=== PATIENT | female | born 1955 | race Caucasian/White ===

== ENCOUNTER 2017-12-01 17:18 | Emergency (ER) | payer MEDICARE, OTHER ==
[~2017-12-01] VITALS: Ht 157.5 cm; Wt 93.0 kg
--- NOTE | 2017-12-01 17:55 | PHYS DOC ---
Past Medical History Past Medical History: A-Fib, CVA, Diabetes-Type II, Hypertension Past Surgical History: Cholecystectomy, , Other Additional Past Surgical Histo: D&C,Uv[place]"the thing that hangs down in your throat, they trimmed it." Alcohol Use: None Drug Use: None Adult General Chief Complaint Chief Complaint: NEURO SYMPTOMS/DEFICITS HPI HPI Patient is a 62-year-old female presents to the emergency department for evaluation. She states that at about 2:30 or 3:00 this afternoon, she began experiencing "soreness" in her shoulders, as if it feels like she needs a massage. She denies any injury. At triage or some report of some left-sided weakness or confusion, although this does not appear to be definitively born out at this time. The patient does have a past history of strokes, however, and has a history of atrial fibrillation and has been on Eliquis for the past several months. She denies any chest pain shortness of breath, dizziness, lightheadedness, vision changes, or any focal weakness at this time. The patient states that she has a history of a hoarse voice, and she saw Dr. Rocha, and ENT in [facility], who did a scope, and then last week did a CT, because he thought the patient might of had a stroke and not known about it. The patient states that she is going to be scheduled for an MRI for further evaluation of this. She denies any abdominal pain, fevers, chills, and does not appear confused at this time. There are no alleviating, or exacerbating factors to her symptoms, except as noted above. Review of Systems Review of Systems Constitutional: Denies fever or chills [] Eyes: Denies change in visual acuity, redness, or eye pain [] HENT: Denies nasal congestion or sore throat [] Respiratory: Denies cough or shortness of breath [] Cardiovascular: The patient denies any shortness of breath, chest pain, palpitations, or orthopnea [] GI: Denies abdominal pain, nausea, vomiting, bloody stools or diarrhea [] : Denies dysuria or hematuria [] Musculoskeletal: Denies back pain or joint pain [] Integument: Denies rash or skin lesions [] Neurologic: Denies headache, focal weakness or sensory changes [] Endocrine: Denies polyuria or polydipsia [] All other systems were reviewed and found to be within normal limits, except as documented in this note. Allergies Allergies Allergies Coded Allergies Type Severity Reaction Last Updated Verified No Known Drug Allergies 12/04/13 No Physical Exam Physical Exam PHYSICAL EXAM: CONSTITUTIONAL: Well developed, well nourished HEAD: normocephalic, atraumatic EENT: PERRL, EOMI. Conjunctivae normal color, sclerae non-icteric; moist mucous membranes. NECK: Supple, non-tender; no meningismus. There is no reproducible tenderness to palpation to the neck or shoulder muscles. LUNGS: Lungs CTA, breathing even and unlabored. Normal air movement. HEART: Regular rate and rhythm, no murmur CHEST: No deformity; non-tender ABDOMEN: The abdomen is soft, and non-tender, no masses or bruits. EXTREM: Normal ROM; no deformity, no calf tenderness. Normal pulses palpable in all extremities. There is no pedal edema. SKIN: No rash; no diaphoresis NEURO: Alert; normal speech and cognition; CN's grossly intact; strength grossly intact without focal deficit. Pinprick sensation is intact and symmetrical in all extremities. Fgwopl-igca-ngbuwj and heel weaver testing are normal. NIH stroke scale score is 0. BACK: No CVA TTP. Current Patient Data Vital Signs Vital Signs Date Time Temp Pulse Resp B/P (MAP) Pulse Ox O2 Delivery O2 Flow Rate FiO2 12/01/17 17:36 98.1 70 16 101/51 (68) 97 Room Air 98.1 Lab Values Laboratory Tests Test 12/01/17 17:40 12/01/17 18:45 Glucose (Fingerstick) 234 mg/dL (70-99) H White Blood Count 8.3 x10^3/uL (4.0-11.0) Red Blood Count 4.42 x10^6/uL (3.50-5.40) Hemoglobin 13.1 g/dL (12.0-15.5) Hematocrit 39.6 % (36.0-47.0) Mean Corpuscular Volume 89 fL (79-100) Mean Corpuscular Hemoglobin 30 pg (25-35) Mean Corpuscular Hemoglobin Concent 33 g/dL (31-37) Red Cell Distribution Width 13.8 % (11.5-14.5) Platelet Count 223 x10^3/uL (140-400) Neutrophils (%) (Auto) 66 % (31-73) Lymphocytes (%) (Auto) 21 % (24-48) L Monocytes (%) (Auto) 8 % (0-9) Eosinophils (%) (Auto) 5 % (0-3) H Basophils (%) (Auto) 1 % (0-3) Neutrophils # (Auto) 5.5 x10^3uL (1.8-7.7) Lymphocytes # (Auto) 1.7 x10^3/uL (1.0-4.8) Monocytes # (Auto) 0.6 x10^3/uL (0.0-1.1) Eosinophils # (Auto) 0.4 x10^3/uL (0.0-0.7) Basophils # (Auto) 0.1 x10^3/uL (0.0-0.2) Prothrombin Time 13.0 SEC (11.7-14.0) Prothrombin Time INR 1.0 (0.8-1.1) PTT 27 SEC (24-38) Sodium Level 137 mmol/L (136-145) Potassium Level 3.6 mmol/L (3.5-5.1) Chloride Level 103 mmol/L (98-107) Carbon Dioxide Level 26 mmol/L (21-32) Anion Gap 8 (6-14) Blood Urea Nitrogen 22 mg/dL (7-20) H Creatinine 1.9 mg/dL (0.6-1.0) H Estimated GFR (Cockcroft-Gault) 26.6 BUN/Creatinine Ratio 12 (6-20) Glucose Level 285 mg/dL (70-99) H Calcium Level 8.8 mg/dL (8.5-10.1) Magnesium Level 2.4 mg/dL (1.8-2.4) Total Bilirubin 0.2 mg/dL (0.2-1.0) Aspartate Amino Transferase (AST) 121 U/L (15-37) H Alanine Aminotransferase (ALT) 92 U/L (14-59) H Alkaline Phosphatase 107 U/L (46-116) Creatine Kinase 112 U/L (26-192) Creatine Kinase MB (Mass) 1.3 ng/mL (0.0-3.6) Creatine Kinase MB Relative Index 1.2 % (0-4) Troponin I Quantitative < 0.017 ng/mL (0.000-0.055) OP-Eon-E-Type Natriuretic Peptide 260 pg/mL (0-124) H Total Protein 7.1 g/dL (6.4-8.2) Albumin 3.3 g/dL (3.4-5.0) L Albumin/Globulin Ratio 0.9 (1.0-1.7) L Free Thyroxine 1.20 ng/dL (0.76-1.46) Laboratory Tests 12/01/17 18:45 Laboratory Tests 12/01/17 18:45 EKG EKG [] Interpretation Time: EKG demonstrates a normal sinus rhythm with rate of 69. No significant ST segment abnormalities are noted on this exam. There is a first-degree AV block. Radiology/Procedures Radiology/Procedures [] Impressions: MPRESSION: Encephalomalacia in the left parietal lobe probably reflecting previous infarct. Microvascular ischemic changes in the deep white matter of the frontal lobes bilaterally. No acute intracranial abnormality evident. Soft tissue density inferiorly in the left maxillary antrum probably representing a polypoid lesion. Course & Med Decision Making Course & Med Decision Making Pertinent Labs and Imaging studies reviewed. (See chart for details) 6:00 PM: Care was turned over to Dr. Walter at shift change, pending labs, imaging, and final disposition. Report given.[] At the time of Dr. Dennis's departure, a CT of the brain without contrast and blood work were pending. Workup has returned with no acute findings on CT. Patient does have elevated creatinine but no prior blood work to compare. 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 Patient indicates that she is feeling much better at this time. She is scheduled for an MRI of the brain this week and will be following up with her primary provider as well. Patient is requesting discharge and I feel the patient is appropriate for discharge home at this time. Patient continues to have no neurological findings concerning for possible neurological event. Dragon Disclaimer Dragon Disclaimer This electronic medical record was generated, in whole or in part, using a voice recognition dictation system. Departure Departure Impression: Primary Impression: Upper back pain Disposition: 01 HOME, SELF-CARE Condition: STABLE Referrals: NON,STAFF (PCP) Patient Instructions: Back Pain, Adult Additional Instructions: Keep appointment for MRI and follow-up with primary provider for this week. Return to the emergency room if you have acute worsening of symptoms. KADEEM DENNIS MD Dec 01, 2017 17:55 OUMAR WALTER Jr., DO Dec 01, 2017 19:31
--- NOTE | 2017-12-01 18:30 | RAD ---
CT head without contrast: Reason for examination: Altered mental status with weakness. History of CVA. Comparison is made to previous study dated 05/30/2004. Axial images were obtained through the brain with no contrast administered. Exposure: One or more of the following individualized dose reduction techniques were utilized for this examination: 1. Automated exposure control 2. Adjustment of the mA and/or kV according to patient size 3. Use of iterative reconstruction technique. Ventricular systems are symmetric and not abnormally dilated. No midline shift is seen. There is no evidence of intracranial hemorrhage. There is some mild patchy deep white matter changes in the frontal lobes bilaterally. This probably reflects microvascular ischemia. There is some encephalomalacia suggested in the left parietal lobe which may reflect previous infarct. No acute infarcts, masses or edema are evident. No abnormalities are seen at the orbits. There is soft tissue density inferiorly in the left maxillary antrum which may represent polypoid lesion in the remaining paranasal sinuses visualized in the mastoid air cells appear to be clear. No acute abnormality seen in the skull. IMPRESSION: Encephalomalacia in the left parietal lobe probably reflecting previous infarct. Microvascular ischemic changes in the deep white matter of the frontal lobes bilaterally. No acute intracranial abnormality evident. Soft tissue density inferiorly in the left maxillary antrum probably representing a polypoid lesion. Electronically signed by: Karina Quintero MD (12/01/2017 6:26 PM) [facility]
[2017-12-01 18:50] LABS: BASO # 0.1 x10^3/uL (0.0-0.2); BASO % 1 % (0-3); EOS # 0.4 x10^3/uL (0.0-0.7); EOS % 5 % (0-3); HEMATOCRIT 39.6 % (36.0-47.0); HEMOGLOBIN 13.1 g/dL (12.0-15.5); LYMPH # 1.7 x10^3/uL (1.0-4.8); LYMPH % 21 % (24-48); MEAN CORPUSCULAR HEMOGLOBIN 30 pg (25-35); MEAN CORPUSCULAR HGB CONC 33 g/dL (31-37); MEAN CORPUSCULAR VOLUME 89 fL (79-100); MONO # 0.6 x10^3/uL (0.0-1.1); MONO % 8 % (0-9); NEUT # 5.5 x10^3uL (1.8-7.7); NEUT % 66 % (31-73); PLATELET COUNT 223 x10^3/uL (140-400); RED BLOOD COUNT 4.42 x10^6/uL (3.50-5.40); RED CELL DISTRIBUTION WIDTH 13.8 % (11.5-14.5); WHITE BLOOD COUNT 8.3 x10^3/uL (4.0-11.0)
[2017-12-01 19:00] VITALS: BP 122/56
[2017-12-01 19:05] LABS: CALCIUM 8.8 mg/dL (8.5-10.1); CREATININE 1.9 mg/dL (0.6-1.0); GFR 26.6; POTASSIUM 3.6 mmol/L (3.5-5.1)
[2017-12-01 19:13] LABS: ALBUMIN 3.3 g/dL (3.4-5.0); ALBUMIN/GLOBULIN RATIO 0.9 (1.0-1.7); MAGNESIUM 2.4 mg/dL (1.8-2.4); TOTAL BILIRUBIN 0.2 mg/dL (0.2-1.0); TOTAL PROTEIN 7.1 g/dL (6.4-8.2)
[2017-12-01] MEDS ORDERED: INSULIN LISPRO 300 UNITS/3 ML INSULN.PEN. SQ STA (19:51)
--- NOTE | 2017-12-02 08:12 | RAD ---
EXAM:PORTABLE CHEST 1V DATE: 12/01/2017 6:56 PM CLINICAL INDICATION: weak and short of breath COMPARISON: None. FINDINGS: The heart is top normal in size. Mediastinal and hilar contours are normal. No focal parenchymal airspace opacity. No pleural effusion or pneumothorax. IMPRESSION: No radiographic evidence for acute cardiopulmonary process. Electronically signed by: Steve Jenkins MD (12/02/2017 8:09 AM) [facility]
--- NOTE | 2017-12-02 11:56 | EKG ---
[facility] [address] [place] [address] Test Date: 2017-12-01 Test Time: 18:00:14 Pat Name: ISAC AMOR Department: Room: Gender: F Director Of Diagnostic Imaging: : 1955 Requested By: KADEEM DICKERSON Order Number: [id number] Reading MD: Tanner Moran MD Measurements Intervals [place] Rate: 68 P: 0 [place]: 222 QRS: 97 QRSD: 90 T: 54 QT: 446 QTc: 479 Interpretive Statements SINUS RHYTHM PROLONGED [place] INTERVAL NON-SPECIFIC ST/T CHANGES Electronically Signed On 12-09-2017 10:28:42 CDT by Tanner Moran MD
== END 2017-12-01 20:52 | disposition home or self-care (01) ==
LOC: ER 17:18
DX: M54.6 Pain in thoracic spine (principal); M25.512 Pain in left shoulder; R06.02 Shortness of breath; R53.1 Weakness; R41.82 Altered mental status, unspecified; G93.89 Other specified disorders of brain; I10 Essential (primary) hypertension; E11.9 Type 2 diabetes mellitus without complications; Z86.73 Personal history of transient ischemic attack (TIA), and cerebral infarction without residual deficits; I48.91 Unspecified atrial fibrillation; Z90.49 Acquired absence of other specified parts of digestive tract
CPT/HCPCS: 36415; 70450; 71045; 80053; 82553; 82962; 83735; 83880; 84439; 84484; 85025; 85610; 85730; 93005; 96372; 99285; J1815

== ENCOUNTER 2021-07-25 12:52 | Inpatient (IN) | payer MEDICARE ==
[~2021-07-25] VITALS: Ht 157.5 cm; Wt 79.6 kg
--- NOTE | 2021-07-25 13:27 | PHYS DOC ---
Past Medical History Past Medical History: A-Fib, CVA, Diabetes-Type II, Hypertension Past Surgical History: No Surgical History Additional Past Surgical Histo: D&C,Uvula"the thing that hangs down in your throat, they trimmed it." Smoking Status: Never Smoker Alcohol Use: None Drug Use: None General Adult EDM: Chief Complaint: UPPER EXTREMITY PAIN HPI: HPI: Patient is a 66 year old female with history of diabetes type 2, hypertension, A. fib, CVA, presenting to the ED today complaining of 3 out of 10 constant left shoulder pain radiating to the left humerus, symptoms have been going on for 3 weeks. Patient states she woke up 1 morning with the pain. Patient states the pain is constant worse on movement especially raising her left shoulder up. Denies any trauma. Denies anything specifically relieving her pain. Review of Systems: Review of Systems: Constitutional: Denies fever or chills. [] Eyes: Denies change in visual acuity. [] HENT: Denies nasal congestion or sore throat. [] Respiratory: Denies cough or shortness of breath. [] Cardiovascular: Denies chest pain or edema. [] GI: Denies abdominal pain, nausea, vomiting, bloody stools or diarrhea. [] : Denies dysuria. [] Musculoskeletal: Reports left shoulder pain radiating to the left humerus Integument: Denies rash. [] Neurologic: Denies headache, focal weakness or sensory changes. [] Endocrine: Denies polyuria or polydipsia. [] . [] Psychiatric: Denies depression or anxiety. [] Heart Score: C/O Chest Pain: No Risk Factors: Risk Factors: DM, Current or recent (<one month) smoker, HTN, HLP, family history of CAD, obesity. Risk Scores: Score 0 - 3: 2.5% MACE over next 6 weeks - Discharge Home Score 4 - 6: 20.3% MACE over next 6 weeks - Admit for Clinical Observation Score 7 - 10: 72.7% MACE over next 6 weeks - Early Invasive Strategies Allergies: Allergies: Allergies Coded Allergies Type Severity Reaction Last Updated Verified No Known Drug Allergies 07/25/21 No Physical Exam: PE: Constitutional: Well developed, well nourished, no acute distress, non-toxic appearance. [] HENT: Normocephalic, atraumatic, bilateral external ears normal, oropharynx moist, no oral exudates, nose normal. [] Eyes: PERRLA, EOMI, conjunctiva normal, no discharge. [] Neck: Normal range of motion, no tenderness, supple, no stridor. [] Cardiovascular:Heart rate regular rhythm, no murmur [] Lungs & Thorax: Bilateral breath sounds clear to auscultation [] Abdomen: Bowel sounds normal, soft, no tenderness, no masses, no pulsatile masses. [] Skin: Warm, dry, no erythema, no rash. [] Back: No tenderness, no CVA tenderness. [] Extremities: No tenderness, no cyanosis, no clubbing, ROM intact, no edema. [] Neurologic: Alert and oriented X 3, normal motor function, normal sensory function, no focal deficits noted. [] Psychologic: Affect normal, judgement normal, mood normal. [] Current Patient Data: Vital Signs: Vital Signs Date Time Temp Pulse Resp B/P (MAP) Pulse Ox O2 Delivery O2 Flow Rate FiO2 07/25/21 12:58 98.3 72 16 189/84 (119) 97 98.3 EKG: EK interpreted by Dr. Rowe sinus rhythm heart rate 71 no STEMI [] Radiology/Procedures: Radiology/Procedures: []PROCEDURE: SHOULDER 2+V LEFT EXAMINATION: XR SHOULDER_LEFT 2+ VIEWS. HISTORY: 66 years Female Reason: pain COMPARISON: None. FINDINGS: No fracture, dislocation or radiopaque foreign body. Mild degenerative munoz es at the AC joint with minimal inferior osteophytes suggested. IMPRESSION: No acute process. Electronically signed by: Harley Johnson MD (07/25/2021 2:22 PM) [id number] DICTATED and SIGNED BY: HARLEY JOHNSON MD DATE: 07/25/21 1420 PROCEDURE: PORTABLE CHEST 1V XR CHEST 1V INDICATION: pain . COMPARISON STUDY: 12/01/2017. FINDINGS: Lungs: Normal lung volume. No pulmonary mass or consolidation. The tracheobronchial tree and hilar structures are normal. Pleura: No pleural effusion or pneumothorax. Heart and Mediastinum: The cardiomediastinal silhouette is normal. The great vessels of the thorax are normal. IMPRESSION: No acute cardiopulmonary process. Electronically signed by: Sarah Wallace MD (07/25/2021 2:37 PM) [facility] DICTATED and SIGNED BY: SARAH WALLACE MD DATE: 07/25/21 1433 Course & Med Decision Making: Course & Med Decision Making Pertinent Labs and Imaging studies reviewed. (See chart for details) This a 66-year-old female patient presented to the ED today with left shoulder pain radiating to the left humerus, symptoms for 3 weeks, no known injury. Vitals on arrival to the ED temperature 98.3, heart rate 72, respirations 16, blood pressure 189/84, O2 sats 97% on room air. CBC no acute findings, CMP with creatinine of 1.6, BUN 26, and known history of kidney disease. Glucose 453, known history of diabetes type 2. Troponin 52. EKG is negative. Spoke with Marianela ESTEVEZ for cardiology who will follow up with the patient for chest pain rule out Spoke with Dr. Hernandez who accepted patient for admission Alexandrea Disclaimer: Alexandrea Disclaimer: This electronic medical record was generated, in whole or in part, using a voice recognition dictation system. Departure Departure Impression: Primary Impression: Hyperglycemia Additional Impressions: Elevated troponin Left upper limb pain Acute renal failure Qualified Codes: N17.9 - Acute kidney failure, unspecified Disposition: ADMITTED INPATIENT Condition: STABLE Referrals: NON,STAFF (PCP) VEL VIERA APRN Jul 25, 2021 13:27
--- NOTE | 2021-07-25 13:46 | EKG ---
[facility] [address] [place] [address] Test Date: 2021-07-25 Test Time: 13:39:48 Pat Name: ISAC AMOR Department: Room: Gender: F [employer]: : 1955 Requested By: VEL VIERA Order Number: [id number] Reading MD: Tanner Moran MD Measurements Intervals [place] Rate: 71 P: -90 [place]: 190 QRS: 54 QRSD: 102 T: 57 QT: 418 QTc: 454 Interpretive Statements SINUS RHYTHM Electronically Signed On 07-26-2021 22:07:24 CDT by Tanner Moran MD
--- NOTE | 2021-07-25 14:24 | RAD ---
EXAMINATION: XR SHOULDER_LEFT 2+ VIEWS. HISTORY: 66 years Female Reason: pain COMPARISON: None. FINDINGS: No fracture, dislocation or radiopaque foreign body. Mild degenerative changes at the AC joint wit h minimal inferior osteophytes suggested. IMPRESSION: No acute process. Electronically signed by: Jerardo Johnson MD (07/25/2021 2:22 PM) [id number]
[2021-07-25 14:35] LABS: BASO # 0.1 x10^3/uL (0.0-0.2); BASO % 1 % (0-3); EOS # 0.3 x10^3/uL (0.0-0.7); EOS % 3 % (0-3); HEMATOCRIT 43.8 % (36.0-47.0); HEMOGLOBIN 14.2 g/dL (12.0-15.5); LYMPH # 2.4 x10^3/uL (1.0-4.8); LYMPH % 26 % (24-48); MEAN CORPUSCULAR HEMOGLOBIN 29 pg (25-35); MEAN CORPUSCULAR HGB CONC 32 g/dL (31-37); MEAN CORPUSCULAR VOLUME 91 fL (79-100); MONO # 0.5 x10^3/uL (0.0-1.1); MONO % 5 % (0-9); NEUT # 6.1 x10^3/uL (1.8-7.7); NEUT % 66 % (31-73); PLATELET COUNT 226 x10^3/uL (140-400); RED BLOOD COUNT 4.84 x10^6/uL (3.50-5.40); RED CELL DISTRIBUTION WIDTH 13.7 % (11.5-14.5); WHITE BLOOD COUNT 9.3 x10^3/uL (4.0-11.0)
--- NOTE | 2021-07-25 14:39 | RAD ---
XR CHEST 1V INDICATION: pain . COMPARISON STUDY: 12/01/2017. FINDINGS: Lungs: Normal lung volume. No pulmonary mass or consolidation. The tracheobronchial tree and hilar st ructures are normal. Pleura: No pleural effusion or pneumothorax. Heart and Mediastinum: The cardiomediastinal silhouette is normal. The great vessels of the thorax ar e normal. IMPRESSION: No acute cardiopulmonary process. Electronically signed by: Husam Wallace MD (07/25/2021 2:37 PM) [facility]
[2021-07-25 14:47] LABS: CALCIUM 9.1 mg/dL (8.5-10.1); CREATININE 1.8 mg/dL (0.6-1.0); POTASSIUM 3.9 mmol/L (3.5-5.1)
[2021-07-25 14:54] LABS: ALBUMIN 3.7 g/dL (3.4-5.0); ALBUMIN/GLOBULIN RATIO 0.9 (1.0-1.7); MAGNESIUM 2.3 mg/dL (1.8-2.4); TOTAL BILIRUBIN 0.3 mg/dL (0.2-1.0); TOTAL PROTEIN 7.9 g/dL (6.4-8.2)
[2021-07-25 14:58] LABS: BACTERIA,URINE MODERATE /HPF (0-FEW); RBC,URINE 0 /HPF (0-2)
[2021-07-25] MEDS ORDERED: NITROGLYCERIN SUBLINGUAL 0.4 MG BOTTLE OF 25. SL PRN (18:00)
[2021-07-25] MEDS ORDERED: ONDANSETRON PF 4 MG/2 ML VIAL. IVP PRN (18:00)
[2021-07-25] MEDS ORDERED: IV NORMAL SALINE 1000ML BAG 1,000 ML IV ONE (18:00)
[2021-07-25] MEDS ORDERED: ASPIRIN 325 MG TABLET PO ONE (18:00)
[2021-07-25] MEDS ORDERED: IV DEXTROSE 5% 250 ML BAG. IV PRN (18:00)
[2021-07-25] MEDS ORDERED: ACETAMINOPHEN 325 MG TABLET. PO PRN (18:00)
[2021-07-25] MEDS ORDERED: MORPHINE SULFATE 4 MG/ML INJ. IVP PRN (18:00)
[2021-07-25] MEDS ORDERED: LABETALOL 20 MG/4 ML DISP.SYRIN. IVP ONE (18:00)
[2021-07-25] MEDS ORDERED: DEXTROSE 50% 25 GM / 50ML DISP.SYRIN. IV PRN (18:00)
[2021-07-25] MEDS ORDERED: hydrALAZINE 20 MG/ML VIAL. IVP PRN (19:00)
[2021-07-25] MEDS ORDERED: INSULIN LISPRO 300 UNITS/3 ML VIAL. SQ ONE (19:00)
--- NOTE | 2021-07-25 19:03 | PDOC1 ---
History and Physical Date of Service: DOS: DATE: 07/25/21 TIME: 19:02 Chief Complaint: Chief Complain: shoulder pain History of Present Illness: HPI: Patient is a 66 year old female with history of diabetes type 2, hypertension, A. fib, CVA, presenting to the ED today complaining of 3 out of 10 constant left shoulder pain radiating to the left humerus, symptoms have been going on for 3 weeks. Patient states she woke up 1 morning with the pain. Patient states the pain is constant worse on movement especially raising her left shoulder up. Denies any trauma. Denies anything specifically relieving her pain. Past Medical/Surgical History: PMH/PSH: Past Medical History: A-Fib, CVA, Diabetes-Type II, Hypertension Past Surgical History: No Surgical History Additional Past Surgical Histo: D&C,[place]"the thing that hangs down in your throat, they trimmed it." Smoking Status: Never Smoker Alcohol Use: None Drug Use: None Allergies: Allergies: Coded Allergies: No Known Drug Allergies (Unverified , 07/25/21) Family History: Family History: HTN Current Medications: Current Medications Current Medications Ondansetron HCl (Zofran) 4 mg PRN Q8HRS PRN IVP NAUSEA/VOMITING; Start 07/25/21 at 18:00; Stop 07/26/21 at 17:59 Morphine Sulfate (Morphine Sulfate) 4 mg PRN Q2HR PRN IVP PAIN; Start 07/25/21 at 18:00; Stop 07/26/21 at 17:59 Acetaminophen (Tylenol) 650 mg PRN Q4HRS PRN PO FEVER > 100.3'F; Start 07/25/21 at 18:00; Stop 07/26/21 at 17:59 Nitroglycerin (Nitrostat) 0.4 mg PRN Q5MIN PRN SL CHEST PAIN; Start 07/25/21 at 18:00; Stop 07/26/21 at 17:59 Aspirin (Loren Aspirin) 325 mg 1X ONCE PO ; Start 07/25/21 at 18:00; Stop 07/25/21 at 18:06; Status DC Labetalol HCl (Normodyne Iv Push) 10 mg 1X ONCE IVP ; Start 07/25/21 at 18:00; Stop 07/25/21 at 18:06; Status DC Sodium Chloride 1,000 ml @ 75 mls/hr 1X ONCE IV ; Start 07/25/21 at 18:00; Stop 07/26/21 at 07:19 Insulin Human Lispro (HumaLOG) 0-5 UNITS TIDWMEALS SQ ; Start 07/26/21 at 08:00 Dextrose (Dextrose 50%-Water Syringe) 12.5 gm PRN Q15MIN PRN IV SEE COMMENTS; Start 07/25/21 at 18:00; Status UNV Dextrose (Iv Dextrose 5%) 250 ml PRN Q15MIN PRN IV SEE COMMENTS; Start 07/25/21 at 18:00 Amlodipine Besylate (Norvasc) 5 mg DAILY PO ; Start 07/26/21 at 09:00 Insulin Human Lispro (HumaLOG) 15 units ONCE ONCE SQ ; Start 07/25/21 at 19:00; Stop 07/25/21 at 19:01; Status DC Hydralazine HCl (Apresoline Inj) 10 mg PRN Q4HRS PRN IVP ELEVATED BP, SEE COMMENTS; Start 07/25/21 at 19:00 Insulin Glargine (Lantus Syringe) 20 unit QHS SQ ; Start 07/25/21 at 21:00 ROS: Review of Systems Review of System Unless noted in HPI 14 point review of systems was negative Physical Exam: Vital Signs: Vital Signs Date Time Temp Pulse Resp B/P (MAP) Pulse Ox O2 Delivery O2 Flow Rate FiO2 07/25/21 18:18 68 18 173/77 (109) 97 Room Air 07/25/21 12:58 98.3 98.3 Physcial Exam: GEN: Mild distress HEENT: Normal cephalic, atraumatic, external auditory canals are patent EYES: Extraocular muscles are intact, pupil are equally round and reactive to light and accommodation MUSCULOSKELETAL: Well developed , well nourished Limited range of motion left shoulder due to pain ENDOCRINE: No thyromegaly was palpated LYMPHATICS: No cervical chain or axillary nodes were noted HEMATOPOIETIC: No bruising NECK: Supple, no JVD, no thyromegaly was noted LUNGS: Clear to auscultation in all lung tripathi without rhonchi or wheezing HEART: RRR, S!, S2 present. Peripheral pulses intact, no obvious murmurs noted ABDOMEN: Soft, nontender. Positive bowel sounds, no organomegaly, normal bowel sounds EXTREMITIES: Without clubbing, cyanosis, or edema. Pedal pulses intact. Negative Homans sign NEUROLOGIC: Normal speech and tone. A&O x 3, moves all extremities, no obvious focal deficits PSYCHIATRIC: Normal affect, normal mood. Stable SKIN: No ulcerations or rashes, good skin turgor, no jaundice VASCULAR: Good capillary refill, neurovascular bundle appears to be intact Labs: Labs: Laboratory Tests Test 07/25/21 14:00 07/25/21 14:22 07/25/21 17:00 07/25/21 18:19 White Blood Count 9.3 x10^3/uL (4.0-11.0) Red Blood Count 4.84 x10^6/uL (3.50-5.40) Hemoglobin 14.2 g/dL (12.0-15.5) Hematocrit 43.8 % (36.0-47.0) Mean Corpuscular Volume 91 fL (79-100) Mean Corpuscular Hemoglobin 29 pg (25-35) Mean Corpuscular Hemoglobin Concent 32 g/dL (31-37) Red Cell Distribution Width 13.7 % (11.5-14.5) Platelet Count 226 x10^3/uL (140-400) Neutrophils (%) (Auto) 66 % (31-73) Lymphocytes (%) (Auto) 26 % (24-48) Monocytes (%) (Auto) 5 % (0-9) Eosinophils (%) (Auto) 3 % (0-3) Basophils (%) (Auto) 1 % (0-3) Neutrophils # (Auto) 6.1 x10^3/uL (1.8-7.7) Lymphocytes # (Auto) 2.4 x10^3/uL (1.0-4.8) Monocytes # (Auto) 0.5 x10^3/uL (0.0-1.1) Eosinophils # (Auto) 0.3 x10^3/uL (0.0-0.7) Basophils # (Auto) 0.1 x10^3/uL (0.0-0.2) Sodium Level 136 mmol/L (136-145) Potassium Level 3.9 mmol/L (3.5-5.1) Chloride Level 101 mmol/L (98-107) Carbon Dioxide Level 27 mmol/L (21-32) Anion Gap 8 (6-14) Blood Urea Nitrogen 26 mg/dL (7-20) Creatinine 1.8 mg/dL (0.6-1.0) Estimated GFR (Cockcroft-Gault) 28.0 BUN/Creatinine Ratio 14 (6-20) Glucose Level 453 mg/dL (70-99) Calcium Level 9.1 mg/dL (8.5-10.1) Magnesium Level 2.3 mg/dL (1.8-2.4) Total Bilirubin 0.3 mg/dL (0.2-1.0) Aspartate Amino Transf (AST/SGOT) 10 U/L (15-37) Alanine Aminotransferase (ALT/SGPT) 16 U/L (14-59) Alkaline Phosphatase 98 U/L (46-116) Troponin I High Sensitivity 52 ng/L (4-50) 49 ng/L (4-50) HS-Llb-F-Type Natriuretic Peptide 231 pg/mL (0-124) Total Protein 7.9 g/dL (6.4-8.2) Albumin 3.7 g/dL (3.4-5.0) Albumin/Globulin Ratio 0.9 (1.0-1.7) Thyroid Stimulating Hormone (TSH) 1.858 uIU/mL (0.358-3.74) Urine Collection Type Unknown Urine Color (Auto) Light yellow Urine Turbidity Hazy Urine pH (Auto) 6.5 (<5.0-8.0) Urine Specific [place] 1.023 (1.000-1.030) Urine Protein (Auto) 50 mg/dL (Negative) Urine Glucose (Auto)(UA) >=1000 mg/dL (Negative) Urine Ketones (Auto) Negative mg/dL (Negative) Urine Blood (Auto) Negative (Negative) Urine Nitrite Negative (Negative) Urine Bilirubin (Auto) Negative (Negative) Urine Urobilinogen (Auto) Normal mg/dL (Normal) Urine Leukocyte Esterase (Auto) Negative (Negative) Urine RBC 0 /HPF (0-2) Urine WBC 5-10 /HPF (0-4) Urine Squamous Epithelial Cells Occ /LPF Urine Bacteria Moderate /HPF (0-FEW) SARS-CoV-2 Antigen (Rapid) Negative (NEGATIVE) Laboratory Tests Test 07/25/21 14:00 07/25/21 14:22 07/25/21 17:00 07/25/21 18:19 White Blood Count 9.3 x10^3/uL (4.0-11.0) Red Blood Count 4.84 x10^6/uL (3.50-5.40) Hemoglobin 14.2 g/dL (12.0-15.5) Hematocrit 43.8 % (36.0-47.0) Mean Corpuscular Volume 91 fL (79-100) Mean Corpuscular Hemoglobin 29 pg (25-35) Mean Corpuscular Hemoglobin Concent 32 g/dL (31-37) Red Cell Distribution Width 13.7 % (11.5-14.5) Platelet Count 226 x10^3/uL (140-400) Neutrophils (%) (Auto) 66 % (31-73) Lymphocytes (%) (Auto) 26 % (24-48) Monocytes (%) (Auto) 5 % (0-9) Eosinophils (%) (Auto) 3 % (0-3) Basophils (%) (Auto) 1 % (0-3) Neutrophils # (Auto) 6.1 x10^3/uL (1.8-7.7) Lymphocytes # (Auto) 2.4 x10^3/uL (1.0-4.8) Monocytes # (Auto) 0.5 x10^3/uL (0.0-1.1) Eosinophils # (Auto) 0.3 x10^3/uL (0.0-0.7) Basophils # (Auto) 0.1 x10^3/uL (0.0-0.2) Sodium Level 136 mmol/L (136-145) Potassium Level 3.9 mmol/L (3.5-5.1) Chloride Level 101 mmol/L (98-107) Carbon Dioxide Level 27 mmol/L (21-32) Anion Gap 8 (6-14) Blood Urea Nitrogen 26 mg/dL (7-20) Creatinine 1.8 mg/dL (0.6-1.0) Estimated GFR (Cockcroft-Gault) 28.0 BUN/Creatinine Ratio 14 (6-20) Glucose Level 453 mg/dL (70-99) Calcium Level 9.1 mg/dL (8.5-10.1) Magnesium Level 2.3 mg/dL (1.8-2.4) Total Bilirubin 0.3 mg/dL (0.2-1.0) Aspartate Amino Transf (AST/SGOT) 10 U/L (15-37) Alanine Aminotransferase (ALT/SGPT) 16 U/L (14-59) Alkaline Phosphatase 98 U/L (46-116) Troponin I High Sensitivity 52 ng/L (4-50) 49 ng/L (4-50) US-Qll-S-Type Natriuretic Peptide 231 pg/mL (0-124) Total Protein 7.9 g/dL (6.4-8.2) Albumin 3.7 g/dL (3.4-5.0) Albumin/Globulin Ratio 0.9 (1.0-1.7) Thyroid Stimulating Hormone (TSH) 1.858 uIU/mL (0.358-3.74) Urine Collection Type Unknown Urine Color (Auto) Light yellow Urine Turbidity Hazy Urine pH (Auto) 6.5 (<5.0-8.0) Urine Specific [place] 1.023 (1.000-1.030) Urine Protein (Auto) 50 mg/dL (Negative) Urine Glucose (Auto)(UA) >=1000 mg/dL (Negative) Urine Ketones (Auto) Negative mg/dL (Negative) Urine Blood (Auto) Negative (Negative) Urine Nitrite Negative (Negative) Urine Bilirubin (Auto) Negative (Negative) Urine Urobilinogen (Auto) Normal mg/dL (Normal) Urine Leukocyte Esterase (Auto) Negative (Negative) Urine RBC 0 /HPF (0-2) Urine WBC 5-10 /HPF (0-4) Urine Squamous Epithelial Cells Occ /LPF Urine Bacteria Moderate /HPF (0-FEW) SARS-CoV-2 Antigen (Rapid) Negative (NEGATIVE) Assessment/Plan Assessment/Plan Left shoulder pain nontraumatic, troponinemia, elevated lipid panel history of A. fib on Eliquis, CVA type 2 diabetes hypertension -Presented complaining of left shoulder pain. Imaging unremarkable. Found to have elevated troponin -PMR consulted for shoulder pain -Can try a PT OT as well if needed -Cardiology consulted in emergency room -Home Eliquis resumed will also serve as DVT prophylaxis -We will gather patient's chart given elevated lipid panel; if not on any home medicines we will try him on 40 of Lipitor tonight -Cardiac diet 21 minutes advance care planning. Justifications for Admission Other Justification MOY FERGUSON MD Jul 25, 2021 19:02
[2021-07-25 19:58] LABS: CHOLESTEROL/HDL RATIO 4.1
[2021-07-25 20:12] LABS: PROTHROMBIN TIME PATIENT 12.5 SEC (11.7-14.0)
[2021-07-25] MEDS ORDERED: APIX5TAB PO (20:21)
[2021-07-25 20:27] VITALS: BP 202/78
[2021-07-25] MEDS: INSULIN GLARGINE SYRINGE. SQ SCH (20:44)
--- NOTE | 2021-07-25 20:59 | NUR ---
Admit to [facility] from ER via [facility]. Ambulated from [facility] to bed with standby assist. Reports she only uses a cane or walker at home if she is going long distances. A/O x 4 on arrival. Orientated to call light. Instructed to call for assist when out of bed. Verbalized understanding. Reviewed POC. Unable to report home medications. Does know she is taking Eliquis for blood thinner r/t hx of CVA. Spoke to daughter, Mariela, , and Mariela is at work and unable to obtain patient's medication list but will attempt to get list in the morning. Patient is resting in bed. Eating box lunch. Watching TV. Call light at hand. Bed alarm on.
[2021-07-25 22:54] VITALS: BP 138/60
[2021-07-26] MEDS ORDERED: DEXTROSE 50% 25 GM / 50ML DISP.SYRIN. IV PRN (00:30)
[2021-07-26] MEDS ORDERED: IV DEXTROSE 5% 250 ML BAG. IV PRN (00:30)
[2021-07-26 02:44] VITALS: BP 151/70
[2021-07-26 04:59] LABS: BASO # 0.1 x10^3/uL (0.0-0.2); BASO % 1 % (0-3); EOS # 0.3 x10^3/uL (0.0-0.7); EOS % 3 % (0-3); HEMATOCRIT 40.7 % (36.0-47.0); LYMPH # 2.2 x10^3/uL (1.0-4.8); LYMPH % 29 % (24-48); MEAN CORPUSCULAR HEMOGLOBIN 29 pg (25-35); MEAN CORPUSCULAR HGB CONC 32 g/dL (31-37); MEAN CORPUSCULAR VOLUME 90 fL (79-100); MONO # 0.5 x10^3/uL (0.0-1.1); MONO % 7 % (0-9); NEUT # 4.5 x10^3/uL (1.8-7.7); NEUT % 60 % (31-73); PLATELET COUNT 222 x10^3/uL (140-400); RED BLOOD COUNT 4.52 x10^6/uL (3.50-5.40); RED CELL DISTRIBUTION WIDTH 13.4 % (11.5-14.5); WHITE BLOOD COUNT 7.6 x10^3/uL (4.0-11.0)
[2021-07-26] MEDS ORDERED: HEPARIN for SUB-Q USE 5,000 UNIT/ML VIAL. SQ SCH (06:00)
[2021-07-26 06:15] LABS: ALBUMIN/GLOBULIN RATIO 0.9 (1.0-1.7); CALCIUM 8.5 mg/dL (8.5-10.1); CREATININE 1.5 mg/dL (0.6-1.0); GFR 34.5; POTASSIUM 3.3 mmol/L (3.5-5.1); TOTAL BILIRUBIN 0.3 mg/dL (0.2-1.0); TOTAL PROTEIN 6.5 g/dL (6.4-8.2)
[2021-07-26 07:00] VITALS: BP 158/73
[2021-07-26] MEDS ORDERED: INSULIN LISPRO 300 UNITS/3 ML VIAL. SQ SCH (08:00)
[2021-07-26] MEDS: INSULIN LISPRO 300 UNITS/3 ML VIAL. SQ SCH ×6 (08:16→17:21)
[2021-07-26] MEDS: APIXABAN 5 MG TABLET. PO SCH ×2 (09:07→20:48)
--- NOTE | 2021-07-26 09:47 | PDOC2 ---
CONSULT Date of Consult Date of Consult DATE: 07/26/21 TIME: 09:08 Reason for Consult Reason for Consult: shoulder pain Referring Physician Referring Physician: Identification/Chief Complaint Chief Complaint Shoulder pain,left, for the last few weeks without any trauma. History of Present Illness Reason for Visit: Left shoulder joint pain going on for the last few weeks without any trauma. She denies any neck pain but admits numbness in her hands and feet. She admits pain going down to anterior aspect of her left arm. Past Medical History Past Medical History diabetes,atrial fibrillation,hypertension,CVA with left hemiparesis about 4 months ago,and she has to learn to walk and that improved. She had a few falls and lives in an assisted living facility and have a cane and walker for use if needed. Cardiovascular: AFIB, HTN CENTRAL NERVOUS SYSTEM: CVA, Periperal neuropathy Musculoskeletal: Other (popping sensation in her knees while up walking.) Social History Lives: Alone (in skilled nursing facility in [place], [place]) Current Problem List Problem List Problems Medical Problems: (1) Acute renal failure Status: Acute (2) Elevated troponin Status: Acute (3) Hyperglycemia Status: Acute (4) Left upper limb pain Status: Acute Current Medications Current Medications Current Medications Ondansetron HCl (Zofran) 4 mg PRN Q8HRS PRN IVP NAUSEA/VOMITING; Start 07/25/21 at 18:00; Stop 07/26/21 at 17:59 Morphine Sulfate (Morphine Sulfate) 4 mg PRN Q2HR PRN IVP PAIN; Start 07/25/21 at 18:00; Stop 07/26/21 at 17:59 Acetaminophen (Tylenol) 650 mg PRN Q4HRS PRN PO FEVER > 100.3'F; Start 07/25/21 at 18:00; Stop 07/26/21 at 17:59 Nitroglycerin (Nitrostat) 0.4 mg PRN Q5MIN PRN SL CHEST PAIN; Start 07/25/21 at 18:00; Stop 07/26/21 at 17:59 Aspirin (Loren Aspirin) 325 mg 1X ONCE PO Last administered on 07/25/21at 20:43; Start 07/25/21 at 18:00; Stop 07/25/21 at 18:06; Status DC Labetalol HCl (Normodyne Iv Push) 10 mg 1X ONCE IVP ; Start 07/25/21 at 18:00; Stop 07/25/21 at 18:06; Status DC Sodium Chloride 1,000 ml @ 75 mls/hr 1X ONCE IV Last administered on 07/25/21at 20:42; Start 07/25/21 at 18:00; Stop 07/26/21 at 07:19; Status DC Insulin Human Lispro (HumaLOG) 0-5 UNITS TIDWMEALS SQ ; Start 07/26/21 at 08:00; Stop 07/26/21 at 00:24; Status DC Dextrose (Dextrose 50%-Water Syringe) 12.5 gm PRN Q15MIN PRN IV SEE COMMENTS; Start 07/25/21 at 18:00; Status UNV Dextrose (Iv Dextrose 5%) 250 ml PRN Q15MIN PRN IV SEE COMMENTS; Start 07/25/21 at 18:00; Stop 07/26/21 at 00:25; Status DC Amlodipine Besylate (Norvasc) 5 mg DAILY PO ; Start 07/26/21 at 09:00 Insulin Human Lispro (HumaLOG) 15 units ONCE ONCE SQ Last administered on 07/25/21at 20:43; Start 07/25/21 at 19:00; Stop 07/25/21 at 19:01; Status DC Hydralazine HCl (Apresoline Inj) 10 mg PRN Q4HRS PRN IVP ELEVATED BP, SEE COMMENTS; Start 07/25/21 at 19:00 Insulin Glargine (Lantus Syringe) 20 unit QHS SQ Last administered on 07/25/21at 20:44; Start 07/25/21 at 21:00 Insulin Human Lispro (HumaLOG) 10 units TIDAC SQ Last administered on 07/26/21at 08:16; Start 07/26/21 at 07:30 Heparin Sodium (Porcine) (Heparin Sodium) 5,000 unit Q8HRS SQ ; Start 07/26/21 at 06:00; Stop 07/26/21 at 00:19; Status DC Apixaban (Eliquis) 5 mg BID PO ; Start 07/26/21 at 09:00 Insulin Human Lispro (HumaLOG) 0-7 UNITS TIDWMEALS SQ Last administered on 07/26/21at 08:16; Start 07/26/21 at 08:00 Dextrose (Dextrose 50%-Water Syringe) 12.5 gm PRN Q15MIN PRN IV SEE COMMENTS; Start 07/26/21 at 00:30 Dextrose (Iv Dextrose 5%) 250 ml PRN Q15MIN PRN IV SEE COMMENTS; Start 07/26/21 at 00:30 Active Scripts Active Reported Eliquis (Apixaban) 5 Mg Tablet 5 Mg PO BID Allergies Allergies: Coded Allergies: No Known Drug Allergies (Unverified , 07/25/21) Physical Exam General: Alert, Oriented X3, Cooperative, No acute distress HEENT: Atraumatic Extremities: Other (She had minimal tenderness to palpation over anteriro aspect of left shoulder and over posteriro shoulder girdle muscles and pain free full ROM of her shoulder joints and cervical spine and no crepitus on ROM of her shoulders and mild crepitus on ROM of her knee joints.) Skin: No breakdown Neuro: Normal gait, Normal speech, Strength at 5/5 X4 ext, Normal tone, Cranial nerves 3-12 NL, Other (No obvious visual field cut or facial asymmetry,and she had decreased sensory perception over a sock and glove distribution and she had absent right ankle and 1+ left ankle jerk.) MUSCULOSKELETAL: Other (She had tenderness to palpation over anterior aspect of left shoulder and left posterior shoulder girdle muscles.) Vitals VITALS Vital Signs Date Time Temp Pulse Resp B/P (MAP) Pulse Ox O2 Delivery O2 Flow Rate FiO2 07/26/21 08:00 Room Air 07/26/21 07:00 97.5 68 18 158/73 (101) 96 97.5 Labs Labs Laboratory Tests Test 07/25/21 14:00 07/25/21 14:22 07/25/21 17:00 07/25/21 18:19 White Blood Count 9.3 x10^3/uL (4.0-11.0) Red Blood Count 4.84 x10^6/uL (3.50-5.40) Hemoglobin 14.2 g/dL (12.0-15.5) Hematocrit 43.8 % (36.0-47.0) Mean Corpuscular Volume 91 fL (79-100) Mean Corpuscular Hemoglobin 29 pg (25-35) Mean Corpuscular Hemoglobin Concent 32 g/dL (31-37) Red Cell Distribution Width 13.7 % (11.5-14.5) Platelet Count 226 x10^3/uL (140-400) Neutrophils (%) (Auto) 66 % (31-73) Lymphocytes (%) (Auto) 26 % (24-48) Monocytes (%) (Auto) 5 % (0-9) Eosinophils (%) (Auto) 3 % (0-3) Basophils (%) (Auto) 1 % (0-3) Neutrophils # (Auto) 6.1 x10^3/uL (1.8-7.7) Lymphocytes # (Auto) 2.4 x10^3/uL (1.0-4.8) Monocytes # (Auto) 0.5 x10^3/uL (0.0-1.1) Eosinophils # (Auto) 0.3 x10^3/uL (0.0-0.7) Basophils # (Auto) 0.1 x10^3/uL (0.0-0.2) Sodium Level 136 mmol/L (136-145) Potassium Level 3.9 mmol/L (3.5-5.1) Chloride Level 101 mmol/L (98-107) Carbon Dioxide Level 27 mmol/L (21-32) Anion Gap 8 (6-14) Blood Urea Nitrogen 26 mg/dL (7-20) Creatinine 1.8 mg/dL (0.6-1.0) Estimated GFR (Cockcroft-Gault) 28.0 BUN/Creatinine Ratio 14 (6-20) Glucose Level 453 mg/dL (70-99) Calcium Level 9.1 mg/dL (8.5-10.1) Magnesium Level 2.3 mg/dL (1.8-2.4) Total Bilirubin 0.3 mg/dL (0.2-1.0) Aspartate Amino Transf (AST/SGOT) 10 U/L (15-37) Alanine Aminotransferase (ALT/SGPT) 16 U/L (14-59) Alkaline Phosphatase 98 U/L (46-116) Troponin I High Sensitivity 52 ng/L (4-50) 49 ng/L (4-50) DH-Ina-Q-Type Natriuretic Peptide 231 pg/mL (0-124) Total Protein 7.9 g/dL (6.4-8.2) Albumin 3.7 g/dL (3.4-5.0) Albumin/Globulin Ratio 0.9 (1.0-1.7) Triglycerides Level 261 mg/dL (0-150) Cholesterol Level 238 mg/dL (0-200) LDL Cholesterol, Calculated 128 mg/dL (0-100) VLDL Cholesterol, Calculated 52 mg/dL (0-40) Non-HDL Cholesterol Calculated 180 mg/dL (0-129) HDL Cholesterol 58 mg/dL (40-60) Cholesterol/HDL Ratio 4.1 Thyroid Stimulating Hormone (TSH) 1.858 uIU/mL (0.358-3.74) Urine Collection Type Unknown Urine Color (Auto) Light yellow Urine Turbidity Hazy Urine pH (Auto) 6.5 (<5.0-8.0) Urine Specific [place] 1.023 (1.000-1.030) Urine Protein (Auto) 50 mg/dL (Negative) Urine Glucose (Auto)(UA) >=1000 mg/dL (Negative) Urine Ketones (Auto) Negative mg/dL (Negative) Urine Blood (Auto) Negative (Negative) Urine Nitrite Negative (Negative) Urine Bilirubin (Auto) Negative (Negative) Urine Urobilinogen (Auto) Normal mg/dL (Normal) Urine Leukocyte Esterase (Auto) Negative (Negative) Urine RBC 0 /HPF (0-2) Urine WBC 5-10 /HPF (0-4) Urine Squamous Epithelial Cells Occ /LPF Urine Bacteria Moderate /HPF (0-FEW) SARS-CoV-2 Antigen (Rapid) Negative (NEGATIVE) Test 07/25/21 19:22 07/25/21 19:30 07/25/21 20:20 07/26/21 03:25 Glucose (Fingerstick) 223 mg/dL (70-99) Prothrombin Time 12.5 SEC (11.7-14.0) Prothromb Time International Ratio 1.0 (0.8-1.1) Activated Partial Thromboplast Time 25 SEC (24-38) Troponin I High Sensitivity 50 ng/L (4-50) White Blood Count 7.6 x10^3/uL (4.0-11.0) Red Blood Count 4.52 x10^6/uL (3.50-5.40) Hemoglobin 13.0 g/dL (12.0-15.5) Hematocrit 40.7 % (36.0-47.0) Mean Corpuscular Volume 90 fL (79-100) Mean Corpuscular Hemoglobin 29 pg (25-35) Mean Corpuscular Hemoglobin Concent 32 g/dL (31-37) Red Cell Distribution Width 13.4 % (11.5-14.5) Platelet Count 222 x10^3/uL (140-400) Neutrophils (%) (Auto) 60 % (31-73) Lymphocytes (%) (Auto) 29 % (24-48) Monocytes (%) (Auto) 7 % (0-9) Eosinophils (%) (Auto) 3 % (0-3) Basophils (%) (Auto) 1 % (0-3) Neutrophils # (Auto) 4.5 x10^3/uL (1.8-7.7) Lymphocytes # (Auto) 2.2 x10^3/uL (1.0-4.8) Monocytes # (Auto) 0.5 x10^3/uL (0.0-1.1) Eosinophils # (Auto) 0.3 x10^3/uL (0.0-0.7) Basophils # (Auto) 0.1 x10^3/uL (0.0-0.2) Sodium Level 142 mmol/L (136-145) Potassium Level 3.3 mmol/L (3.5-5.1) Chloride Level 106 mmol/L (98-107) Carbon Dioxide Level 27 mmol/L (21-32) Anion Gap 9 (6-14) Blood Urea Nitrogen 25 mg/dL (7-20) Creatinine 1.5 mg/dL (0.6-1.0) Estimated GFR (Cockcroft-Gault) 34.5 BUN/Creatinine Ratio 17 (6-20) Glucose Level 204 mg/dL (70-99) Calcium Level 8.5 mg/dL (8.5-10.1) Total Bilirubin 0.3 mg/dL (0.2-1.0) Aspartate Amino Transf (AST/SGOT) 12 U/L (15-37) Alanine Aminotransferase (ALT/SGPT) 17 U/L (14-59) Alkaline Phosphatase 75 U/L (46-116) Total Protein 6.5 g/dL (6.4-8.2) Albumin 3.0 g/dL (3.4-5.0) Albumin/Globulin Ratio 0.9 (1.0-1.7) Test 07/26/21 07:51 Glucose (Fingerstick) 184 mg/dL (70-99) Laboratory Tests Test 07/25/21 14:00 07/25/21 14:22 07/25/21 17:00 07/25/21 18:19 White Blood Count 9.3 x10^3/uL (4.0-11.0) Red Blood Count 4.84 x10^6/uL (3.50-5.40) Hemoglobin 14.2 g/dL (12.0-15.5) Hematocrit 43.8 % (36.0-47.0) Mean Corpuscular Volume 91 fL (79-100) Mean Corpuscular Hemoglobin 29 pg (25-35) Mean Corpuscular Hemoglobin Concent 32 g/dL (31-37) Red Cell Distribution Width 13.7 % (11.5-14.5) Platelet Count 226 x10^3/uL (140-400) Neutrophils (%) (Auto) 66 % (31-73) Lymphocytes (%) (Auto) 26 % (24-48) Monocytes (%) (Auto) 5 % (0-9) Eosinophils (%) (Auto) 3 % (0-3) Basophils (%) (Auto) 1 % (0-3) Neutrophils # (Auto) 6.1 x10^3/uL (1.8-7.7) Lymphocytes # (Auto) 2.4 x10^3/uL (1.0-4.8) Monocytes # (Auto) 0.5 x10^3/uL (0.0-1.1) Eosinophils # (Auto) 0.3 x10^3/uL (0.0-0.7) Basophils # (Auto) 0.1 x10^3/uL (0.0-0.2) Sodium Level 136 mmol/L (136-145) Potassium Level 3.9 mmol/L (3.5-5.1) Chloride Level 101 mmol/L (98-107) Carbon Dioxide Level 27 mmol/L (21-32) Anion Gap 8 (6-14) Blood Urea Nitrogen 26 mg/dL (7-20) Creatinine 1.8 mg/dL (0.6-1.0) Estimated GFR (Cockcroft-Gault) 28.0 BUN/Creatinine Ratio 14 (6-20) Glucose Level 453 mg/dL (70-99) Calcium Level 9.1 mg/dL (8.5-10.1) Magnesium Level 2.3 mg/dL (1.8-2.4) Total Bilirubin 0.3 mg/dL (0.2-1.0) Aspartate Amino Transf (AST/SGOT) 10 U/L (15-37) Alanine Aminotransferase (ALT/SGPT) 16 U/L (14-59) Alkaline Phosphatase 98 U/L (46-116) Troponin I High Sensitivity 52 ng/L (4-50) 49 ng/L (4-50) IK-Hao-R-Type Natriuretic Peptide 231 pg/mL (0-124) Total Protein 7.9 g/dL (6.4-8.2) Albumin 3.7 g/dL (3.4-5.0) Albumin/Globulin Ratio 0.9 (1.0-1.7) Triglycerides Level 261 mg/dL (0-150) Cholesterol Level 238 mg/dL (0-200) LDL Cholesterol, Calculated 128 mg/dL (0-100) VLDL Cholesterol, Calculated 52 mg/dL (0-40) Non-HDL Cholesterol Calculated 180 mg/dL (0-129) HDL Cholesterol 58 mg/dL (40-60) Cholesterol/HDL Ratio 4.1 Thyroid Stimulating Hormone (TSH) 1.858 uIU/mL (0.358-3.74) Urine Collection Type Unknown Urine Color (Auto) Light yellow Urine Turbidity Hazy Urine pH (Auto) 6.5 (<5.0-8.0) Urine Specific [place] 1.023 (1.000-1.030) Urine Protein (Auto) 50 mg/dL (Negative) Urine Glucose (Auto)(UA) >=1000 mg/dL (Negative) Urine Ketones (Auto) Negative mg/dL (Negative) Urine Blood (Auto) Negative (Negative) Urine Nitrite Negative (Negative) Urine Bilirubin (Auto) Negative (Negative) Urine Urobilinogen (Auto) Normal mg/dL (Normal) Urine Leukocyte Esterase (Auto) Negative (Negative) Urine RBC 0 /HPF (0-2) Urine WBC 5-10 /HPF (0-4) Urine Squamous Epithelial Cells Occ /LPF Urine Bacteria Moderate /HPF (0-FEW) SARS-CoV-2 Antigen (Rapid) Negative (NEGATIVE) Test 07/25/21 19:22 07/25/21 19:30 07/25/21 20:20 07/26/21 03:25 Glucose (Fingerstick) 223 mg/dL (70-99) Prothrombin Time 12.5 SEC (11.7-14.0) Prothromb Time International Ratio 1.0 (0.8-1.1) Activated Partial Thromboplast Time 25 SEC (24-38) Troponin I High Sensitivity 50 ng/L (4-50) White Blood Count 7.6 x10^3/uL (4.0-11.0) Red Blood Count 4.52 x10^6/uL (3.50-5.40) Hemoglobin 13.0 g/dL (12.0-15.5) Hematocrit 40.7 % (36.0-47.0) Mean Corpuscular Volume 90 fL (79-100) Mean Corpuscular Hemoglobin 29 pg (25-35) Mean Corpuscular Hemoglobin Concent 32 g/dL (31-37) Red Cell Distribution Width 13.4 % (11.5-14.5) Platelet Count 222 x10^3/uL (140-400) Neutrophils (%) (Auto) 60 % (31-73) Lymphocytes (%) (Auto) 29 % (24-48) Monocytes (%) (Auto) 7 % (0-9) Eosinophils (%) (Auto) 3 % (0-3) Basophils (%) (Auto) 1 % (0-3) Neutrophils # (Auto) 4.5 x10^3/uL (1.8-7.7) Lymphocytes # (Auto) 2.2 x10^3/uL (1.0-4.8) Monocytes # (Auto) 0.5 x10^3/uL (0.0-1.1) Eosinophils # (Auto) 0.3 x10^3/uL (0.0-0.7) Basophils # (Auto) 0.1 x10^3/uL (0.0-0.2) Sodium Level 142 mmol/L (136-145) Potassium Level 3.3 mmol/L (3.5-5.1) Chloride Level 106 mmol/L (98-107) Carbon Dioxide Level 27 mmol/L (21-32) Anion Gap 9 (6-14) Blood Urea Nitrogen 25 mg/dL (7-20) Creatinine 1.5 mg/dL (0.6-1.0) Estimated GFR (Cockcroft-Gault) 34.5 BUN/Creatinine Ratio 17 (6-20) Glucose Level 204 mg/dL (70-99) Calcium Level 8.5 mg/dL (8.5-10.1) Total Bilirubin 0.3 mg/dL (0.2-1.0) Aspartate Amino Transf (AST/SGOT) 12 U/L (15-37) Alanine Aminotransferase (ALT/SGPT) 17 U/L (14-59) Alkaline Phosphatase 75 U/L (46-116) Total Protein 6.5 g/dL (6.4-8.2) Albumin 3.0 g/dL (3.4-5.0) Albumin/Globulin Ratio 0.9 (1.0-1.7) Test 07/26/21 07:51 Glucose (Fingerstick) 184 mg/dL (70-99) Images Images X-ray left shoulder mild DJD of AC joint. 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 Diabetic peripheral neuropathy. Rec: I have instructed her in a home program of physical modalities to left shoulder,followed by stretching exercises to posterior shoulder girdle muscles and in Codman's exercises to her left shoulder and to try a short course of oral prednisone and home when medically stable. PREM BRISENO MD Jul 26, 2021 09:47
[2021-07-26 10:59] VITALS: BP 142/60
--- NOTE | 2021-07-26 12:09 | PDOC2 ---
JANETTE COMBS MEDICAL SOCIOLOGIST 07/26/21 1209: CARDIAC CONSULT DATE OF CONSULT Date of Consult DATE: 07/26/21 TIME: 12:03 REASON FOR CONSULT Reason for Consult: LUE pain REFERRING PHYSICIAN Referring Physician: Ermelinda SOURCE Source: Chart review, Patient HISTORY OF PRESENT ILLNESS HISTORY OF PRESENT ILLNESS This is a pleasant 66 yo female admitted for complains of left shoulder. She was told by her family to get this check out since this could be ralted to heart attack. No associated chest pain, SOA, fatigue, nausea, vomiting. No recent falls or injury. No fever or chills. Could not remember lifting heavy things or moving furniture but her left arm hurst with sometimes shooting with motion. Positive for pain with palpation and ROM to left arm and shoulder. She sees her tobacco classer in [facility] in 3 weeks and also sees a mend worker. She lives over there and just here to visit her family. Her last stress test was 4 yrs ago. PAST MEDICAL HISTORY Cardiovascular: AFIB, HTN, Hyperlipidemia Pulmonary: No pertinent hx CENTRAL NERVOUS SYSTEM: CVA GI: No pertinent hx Heme/Onc: No pertinent hx Psych: No pertinent hx Musculoskeletal: Osteoarthritis Rheumatologic: No pertinent hx Infectious disease: No pertinent hx ENT: No pertinent hx Renal/: Chronic renal insuff Endocrine: Diabetes (2) Dermatology: No pertinent hx PAST SURGICAL HISTORY Past Surgical History: Hysterectomy FAMILY HISTORY Family History: Coronary Artery Disease (father at 42) SOCIAL HISTORY Smoke: No ALCOHOL: none Drugs: None Lives: with Family CURRENT MEDICATIONS CURRENT MEDICATIONS Current Medications Medications (Trade) Dose Ordered Sig/[place] Route PRN Reason Start Time Stop Time Status Last Admin Dose Admin Aspirin (Loren Aspirin) 325 mg 1X ONCE PO 07/25/21 18:00 07/25/21 18:06 DC 07/25/21 20:43 Sodium Chloride 1,000 ml @ 75 mls/hr 1X ONCE IV 07/25/21 18:00 07/26/21 07:19 DC 07/25/21 20:42 Amlodipine Besylate (Norvasc) 5 mg DAILY PO 07/26/21 09:00 07/26/21 09:07 Insulin Human Lispro (HumaLOG) 15 units ONCE ONCE SQ 07/25/21 19:00 07/25/21 19:01 DC 07/25/21 20:43 Insulin Glargine (Lantus Syringe) 20 unit QHS SQ 07/25/21 21:00 07/25/21 20:44 Insulin Human Lispro (HumaLOG) 10 units TIDAC SQ 07/26/21 07:30 07/26/21 12:00 Apixaban (Eliquis) 5 mg BID PO 07/26/21 09:00 07/26/21 09:07 Insulin Human Lispro (HumaLOG) 0-7 UNITS TIDWMEALS SQ 07/26/21 08:00 07/26/21 08:16 ALLERGIES ALLERGIES: Coded Allergies: No Known Drug Allergies (Unverified , 07/25/21) ROS Review of System 14 point ROS evaluated with pertinent positives noted per HPI PHYSICAL EXAM General: Alert, Oriented X3, Cooperative, No acute distress HEENT: Atraumatic, Mucous membr. moist/pink Lungs: Clear to auscultation, Normal air movement Heart: Regular rate (SR), Normal S1, Normal S2, Other (2/6 systolic murmur to LLS border) Abdomen: Soft, No tenderness Extremities: No cyanosis, No edema Skin: No breakdown, No significant lesion Neuro: Normal speech, Sensation intact Psych/Mental Status: Mental status NL, Mood NL MUSCULOSKELETAL: Osteoarthritic changes both hands, Other (Positive pain to left shoulder with palpation and ROM) VITALS/I&O VITALS/I&O: Vital Signs Date Time Temp Pulse Resp B/P (MAP) Pulse Ox O2 Delivery O2 Flow Rate FiO2 07/26/21 10:59 97.5 70 18 142/60 (87) 99 Room Air 97.5 l I & O 07/25/21 07/25/21 07/26/21 15:00 23:00 07:00 Intake Total 200 ml Output Total 100 ml 700 ml Balance -100 ml -500 ml LABS Lab: Laboratory Tests Test 07/25/21 14:00 07/25/21 14:22 07/25/21 17:00 07/25/21 18:19 White Blood Count 9.3 x10^3/uL (4.0-11.0) Red Blood Count 4.84 x10^6/uL (3.50-5.40) Hemoglobin 14.2 g/dL (12.0-15.5) Hematocrit 43.8 % (36.0-47.0) Mean Corpuscular Volume 91 fL (79-100) Mean Corpuscular Hemoglobin 29 pg (25-35) Mean Corpuscular Hemoglobin Concent 32 g/dL (31-37) Red Cell Distribution Width 13.7 % (11.5-14.5) Platelet Count 226 x10^3/uL (140-400) Neutrophils (%) (Auto) 66 % (31-73) Lymphocytes (%) (Auto) 26 % (24-48) Monocytes (%) (Auto) 5 % (0-9) Eosinophils (%) (Auto) 3 % (0-3) Basophils (%) (Auto) 1 % (0-3) Neutrophils # (Auto) 6.1 x10^3/uL (1.8-7.7) Lymphocytes # (Auto) 2.4 x10^3/uL (1.0-4.8) Monocytes # (Auto) 0.5 x10^3/uL (0.0-1.1) Eosinophils # (Auto) 0.3 x10^3/uL (0.0-0.7) Basophils # (Auto) 0.1 x10^3/uL (0.0-0.2) Sodium Level 136 mmol/L (136-145) Potassium Level 3.9 mmol/L (3.5-5.1) Chloride Level 101 mmol/L (98-107) Carbon Dioxide Level 27 mmol/L (21-32) Anion Gap 8 (6-14) Blood Urea Nitrogen 26 mg/dL (7-20) H Creatinine 1.8 mg/dL (0.6-1.0) H Estimated GFR (Cockcroft-Gault) 28.0 BUN/Creatinine Ratio 14 (6-20) Glucose Level 453 mg/dL (70-99) H Calcium Level 9.1 mg/dL (8.5-10.1) Magnesium Level 2.3 mg/dL (1.8-2.4) Total Bilirubin 0.3 mg/dL (0.2-1.0) Aspartate Amino Transferase (AST) 10 U/L (15-37) L Alanine Aminotransferase (ALT) 16 U/L (14-59) Alkaline Phosphatase 98 U/L (46-116) Troponin I High Sensitivity 52 ng/L (4-50) H 49 ng/L (4-50) YF-Pwp-R-Type Natriuretic Peptide 231 pg/mL (0-124) H Total Protein 7.9 g/dL (6.4-8.2) Albumin 3.7 g/dL (3.4-5.0) Albumin/Globulin Ratio 0.9 (1.0-1.7) L Triglycerides Level 261 mg/dL (0-150) H Cholesterol Level 238 mg/dL (0-200) H LDL Cholesterol, Calculated 128 mg/dL (0-100) H VLDL Cholesterol, Calculated 52 mg/dL (0-40) H Non-HDL Cholesterol Calculated 180 mg/dL (0-129) H HDL Cholesterol 58 mg/dL (40-60) Cholesterol/HDL Ratio 4.1 Thyroid Stimulating Hormone (TSH) 1.858 uIU/mL (0.358-3.74) Urine Collection Type Unknown Urine Color (Auto) Light yellow Urine Turbidity Hazy Urine pH (Auto) 6.5 (<5.0-8.0) Urine Specific [place] 1.023 (1.000-1.030) Urine Protein (Auto) 50 mg/dL (Negative) Urine Glucose (Auto)(UA) >=1000 mg/dL (Negative) Urine Ketones (Auto) Negative mg/dL (Negative) Urine Blood (Auto) Negative (Negative) Urine Nitrite Negative (Negative) Urine Bilirubin (Auto) Negative (Negative) Urine Urobilinogen (Auto) Normal mg/dL (Normal) Urine Leukocyte Esterase (Auto) Negative (Negative) Urine RBC 0 /HPF (0-2) Urine WBC 5-10 /HPF (0-4) Urine Squamous Epithelial Cells Occ /LPF Urine Bacteria Moderate /HPF (0-FEW) SARS-CoV-2 Antigen (Rapid) Negative (NEGATIVE) Test 07/25/21 19:22 07/25/21 19:30 07/25/21 20:20 07/26/21 03:25 Glucose (Fingerstick) 223 mg/dL (70-99) H Prothrombin Time 12.5 SEC (11.7-14.0) Prothrombin Time INR 1.0 (0.8-1.1) Activated Partial Thromboplast Time 25 SEC (24-38) Troponin I High Sensitivity 50 ng/L (4-50) White Blood Count 7.6 x10^3/uL (4.0-11.0) Red Blood Count 4.52 x10^6/uL (3.50-5.40) Hemoglobin 13.0 g/dL (12.0-15.5) Hematocrit 40.7 % (36.0-47.0) Mean Corpuscular Volume 90 fL (79-100) Mean Corpuscular Hemoglobin 29 pg (25-35) Mean Corpuscular Hemoglobin Concent 32 g/dL (31-37) Red Cell Distribution Width 13.4 % (11.5-14.5) Platelet Count 222 x10^3/uL (140-400) Neutrophils (%) (Auto) 60 % (31-73) Lymphocytes (%) (Auto) 29 % (24-48) Monocytes (%) (Auto) 7 % (0-9) Eosinophils (%) (Auto) 3 % (0-3) Basophils (%) (Auto) 1 % (0-3) Neutrophils # (Auto) 4.5 x10^3/uL (1.8-7.7) Lymphocytes # (Auto) 2.2 x10^3/uL (1.0-4.8) Monocytes # (Auto) 0.5 x10^3/uL (0.0-1.1) Eosinophils # (Auto) 0.3 x10^3/uL (0.0-0.7) Basophils # (Auto) 0.1 x10^3/uL (0.0-0.2) Sodium Level 142 mmol/L (136-145) Potassium Level 3.3 mmol/L (3.5-5.1) L Chloride Level 106 mmol/L (98-107) Carbon Dioxide Level 27 mmol/L (21-32) Anion Gap 9 (6-14) Blood Urea Nitrogen 25 mg/dL (7-20) H Creatinine 1.5 mg/dL (0.6-1.0) H Estimated GFR (Cockcroft-Gault) 34.5 BUN/Creatinine Ratio 17 (6-20) Glucose Level 204 mg/dL (70-99) H Calcium Level 8.5 mg/dL (8.5-10.1) Total Bilirubin 0.3 mg/dL (0.2-1.0) Aspartate Amino Transferase (AST) 12 U/L (15-37) L Alanine Aminotransferase (ALT) 17 U/L (14-59) Alkaline Phosphatase 75 U/L (46-116) Total Protein 6.5 g/dL (6.4-8.2) Albumin 3.0 g/dL (3.4-5.0) L Albumin/Globulin Ratio 0.9 (1.0-1.7) L Test 07/26/21 07:51 07/26/21 11:27 Glucose (Fingerstick) 184 mg/dL (70-99) H 135 mg/dL (70-99) H Laboratory Tests 07/25/21 14:00 07/26/21 03:25 Laboratory Tests 07/25/21 14:00 07/26/21 03:25 ASSESSMENT/PLAN ASSESSMENT/PLAN 1. Left shoulder/arm: Suspect tendinitis possible RTC impingement. Positive with ROM maneuvers 2. Hx of CVA; 4 months ago 3. PAFIB: SR 4. HTN: controlled 5. CKD: possibly stage 3 6. HLP 7. DM2: per PCP 8. Trivial elevation to troponin: peaked at 52, no acute EKG changes no cardiac symptoms Recommendations 1. Continue with eliquis for stroke prevention. Secondary prevention measures 2. RN to clarify med list 3. She sees a mend worker and tobacco classer at [place], [place] where she is from, visiting family here. discussed with pt to get an echo and outpt stress test arrange prior to her appointment with cardiology in 3 weeks DOLORES PORRAS MD 07/26/215: CARDIAC CONSULT ASSESSMENT/PLAN ASSESSMENT/PLAN Pt. seen and examined. Agree with above [employer] note. Patient has multiple risk factors but current presentation appears to be MSK and non-anginal. Trivial troponin elevation in the setting of HTN with pain. Given risk factors, she merits outpt stress testing. Supportive care. EKG is reassuring. JANETTE COMBS APRN Jul 26, 2021 12:09 DOLORES PORRAS MD Jul 26, 2021 22:09
[2021-07-26] MEDS ORDERED: FURO20TA3 PO (13:12)
[2021-07-26] MEDS ORDERED: INSU100I13 SQ (13:12)
[2021-07-26] MEDS ORDERED: DULO30CA44 PO (13:12)
[2021-07-26] MEDS ORDERED: CAPT25TA3 PO (13:12)
[2021-07-26] MEDS ORDERED: APIX5TAB PO (13:12)
[2021-07-26] MEDS ORDERED: MONT10TA49 PO (13:12)
[2021-07-26] MEDS ORDERED: AMIO200T53 PO (13:12)
[2021-07-26] MEDS ORDERED: POTA-121 PO (13:12)
[2021-07-26] MEDS ORDERED: TOLT4CAP PO (13:12)
[2021-07-26] MEDS ORDERED: POTASSIUM CHLORIDE 20 MEQ TABLET.ER. PO ONE (13:30)
[2021-07-26] MEDS: AMIODARONE HCL 200 MG TABLET. PO SCH (13:40)
[2021-07-26] MEDS: FUROSEMIDE 20 MG TABLET PO SCH (13:41)
--- NOTE | 2021-07-26 14:55 | NUR ---
SS following for discharge planning. SS reviewed pt chart and discussed with pt RN. Pt is from home and is currently on room air. Cardiology and Dr. Abdi following. COVID19 negative. PT/OT recommended home with home healthcare. SS will continue to follow for discharge planning.
[2021-07-26 15:00] VITALS: BP 146/70
--- NOTE | 2021-07-26 16:32 | PDOC3 ---
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 Diabetic peripheral neuropathy. CKD 3 obese, BMI 32 Dm2 hyperlipids, untreated Problems Medical Problems: (1) Acute renal failure Status: Acute (2) Elevated troponin Status: Acute (3) Hyperglycemia Status: Acute (4) Left upper limb pain Status: Acute Brief Hospital Course Allergies Allergies Coded Allergies Type Severity Reaction Last Updated Verified No Known Drug Allergies 07/25/21 No Vital Signs Vital Signs Date Time Temp Pulse Resp B/P (MAP) Pulse Ox O2 Delivery O2 Flow Rate FiO2 07/26/21 15:00 97.6 76 18 146/70 (95) 97 Room Air 97.6 Lab Results Laboratory Tests Test 07/25/21 14:00 07/25/21 14:22 07/25/21 17:00 07/25/21 18:19 White Blood Count 9.3 x10^3/uL (4.0-11.0) Red Blood Count 4.84 x10^6/uL (3.50-5.40) Hemoglobin 14.2 g/dL (12.0-15.5) Hematocrit 43.8 % (36.0-47.0) Mean Corpuscular Volume 91 fL (79-100) Mean Corpuscular Hemoglobin 29 pg (25-35) Mean Corpuscular Hemoglobin Concent 32 g/dL (31-37) Red Cell Distribution Width 13.7 % (11.5-14.5) Platelet Count 226 x10^3/uL (140-400) Neutrophils (%) (Auto) 66 % (31-73) Lymphocytes (%) (Auto) 26 % (24-48) Monocytes (%) (Auto) 5 % (0-9) Eosinophils (%) (Auto) 3 % (0-3) Basophils (%) (Auto) 1 % (0-3) Neutrophils # (Auto) 6.1 x10^3/uL (1.8-7.7) Lymphocytes # (Auto) 2.4 x10^3/uL (1.0-4.8) Monocytes # (Auto) 0.5 x10^3/uL (0.0-1.1) Eosinophils # (Auto) 0.3 x10^3/uL (0.0-0.7) Basophils # (Auto) 0.1 x10^3/uL (0.0-0.2) Sodium Level 136 mmol/L (136-145) Potassium Level 3.9 mmol/L (3.5-5.1) Chloride Level 101 mmol/L (98-107) Carbon Dioxide Level 27 mmol/L (21-32) Anion Gap 8 (6-14) Blood Urea Nitrogen 26 mg/dL (7-20) Creatinine 1.8 mg/dL (0.6-1.0) Estimated GFR (Cockcroft-Gault) 28.0 BUN/Creatinine Ratio 14 (6-20) Glucose Level 453 mg/dL (70-99) Calcium Level 9.1 mg/dL (8.5-10.1) Magnesium Level 2.3 mg/dL (1.8-2.4) Total Bilirubin 0.3 mg/dL (0.2-1.0) Aspartate Amino Transf (AST/SGOT) 10 U/L (15-37) Alanine Aminotransferase (ALT/SGPT) 16 U/L (14-59) Alkaline Phosphatase 98 U/L (46-116) Troponin I High Sensitivity 52 ng/L (4-50) 49 ng/L (4-50) QN-Hlk-V-Type Natriuretic Peptide 231 pg/mL (0-124) Total Protein 7.9 g/dL (6.4-8.2) Albumin 3.7 g/dL (3.4-5.0) Albumin/Globulin Ratio 0.9 (1.0-1.7) Triglycerides Level 261 mg/dL (0-150) Cholesterol Level 238 mg/dL (0-200) LDL Cholesterol, Calculated 128 mg/dL (0-100) VLDL Cholesterol, Calculated 52 mg/dL (0-40) Non-HDL Cholesterol Calculated 180 mg/dL (0-129) HDL Cholesterol 58 mg/dL (40-60) Cholesterol/HDL Ratio 4.1 Thyroid Stimulating Hormone (TSH) 1.858 uIU/mL (0.358-3.74) Urine Collection Type Unknown Urine Color (Auto) Light yellow Urine Turbidity Hazy Urine pH (Auto) 6.5 (<5.0-8.0) Urine Specific [place] 1.023 (1.000-1.030) Urine Protein (Auto) 50 mg/dL (Negative) Urine Glucose (Auto)(UA) >=1000 mg/dL (Negative) Urine Ketones (Auto) Negative mg/dL (Negative) Urine Blood (Auto) Negative (Negative) Urine Nitrite Negative (Negative) Urine Bilirubin (Auto) Negative (Negative) Urine Urobilinogen (Auto) Normal mg/dL (Normal) Urine Leukocyte Esterase (Auto) Negative (Negative) Urine RBC 0 /HPF (0-2) Urine WBC 5-10 /HPF (0-4) Urine Squamous Epithelial Cells Occ /LPF Urine Bacteria Moderate /HPF (0-FEW) Coronavirus (COVID-19)(PCR) Not detected (NOT DETECTD) SARS-CoV-2 Antigen (Rapid) Negative (NEGATIVE) Test 07/25/21 19:22 07/25/21 19:30 07/25/21 20:20 07/26/21 03:25 Glucose (Fingerstick) 223 mg/dL (70-99) Prothrombin Time 12.5 SEC (11.7-14.0) Prothromb Time International Ratio 1.0 (0.8-1.1) Activated Partial Thromboplast Time 25 SEC (24-38) Troponin I High Sensitivity 50 ng/L (4-50) White Blood Count 7.6 x10^3/uL (4.0-11.0) Red Blood Count 4.52 x10^6/uL (3.50-5.40) Hemoglobin 13.0 g/dL (12.0-15.5) Hematocrit 40.7 % (36.0-47.0) Mean Corpuscular Volume 90 fL (79-100) Mean Corpuscular Hemoglobin 29 pg (25-35) Mean Corpuscular Hemoglobin Concent 32 g/dL (31-37) Red Cell Distribution Width 13.4 % (11.5-14.5) Platelet Count 222 x10^3/uL (140-400) Neutrophils (%) (Auto) 60 % (31-73) Lymphocytes (%) (Auto) 29 % (24-48) Monocytes (%) (Auto) 7 % (0-9) Eosinophils (%) (Auto) 3 % (0-3) Basophils (%) (Auto) 1 % (0-3) Neutrophils # (Auto) 4.5 x10^3/uL (1.8-7.7) Lymphocytes # (Auto) 2.2 x10^3/uL (1.0-4.8) Monocytes # (Auto) 0.5 x10^3/uL (0.0-1.1) Eosinophils # (Auto) 0.3 x10^3/uL (0.0-0.7) Basophils # (Auto) 0.1 x10^3/uL (0.0-0.2) Sodium Level 142 mmol/L (136-145) Potassium Level 3.3 mmol/L (3.5-5.1) Chloride Level 106 mmol/L (98-107) Carbon Dioxide Level 27 mmol/L (21-32) Anion Gap 9 (6-14) Blood Urea Nitrogen 25 mg/dL (7-20) Creatinine 1.5 mg/dL (0.6-1.0) Estimated GFR (Cockcroft-Gault) 34.5 BUN/Creatinine Ratio 17 (6-20) Glucose Level 204 mg/dL (70-99) Calcium Level 8.5 mg/dL (8.5-10.1) Total Bilirubin 0.3 mg/dL (0.2-1.0) Aspartate Amino Transf (AST/SGOT) 12 U/L (15-37) Alanine Aminotransferase (ALT/SGPT) 17 U/L (14-59) Alkaline Phosphatase 75 U/L (46-116) Total Protein 6.5 g/dL (6.4-8.2) Albumin 3.0 g/dL (3.4-5.0) Albumin/Globulin Ratio 0.9 (1.0-1.7) Test 07/26/21 07:51 07/26/21 11:27 Glucose (Fingerstick) 184 mg/dL (70-99) 135 mg/dL (70-99) Laboratory Tests Test 07/25/21 17:00 07/25/21 18:19 07/25/21 19:22 07/25/21 19:30 Troponin I High Sensitivity 49 ng/L (4-50) Coronavirus (COVID-19)(PCR) Not detected (NOT DETECTD) SARS-CoV-2 Antigen (Rapid) Negative (NEGATIVE) Glucose (Fingerstick) 223 mg/dL (70-99) Prothrombin Time 12.5 SEC (11.7-14.0) Prothromb Time International Ratio 1.0 (0.8-1.1) Activated Partial Thromboplast Time 25 SEC (24-38) Test 07/25/21 20:20 07/26/21 03:25 07/26/21 07:51 07/26/21 11:27 Troponin I High Sensitivity 50 ng/L (4-50) White Blood Count 7.6 x10^3/uL (4.0-11.0) Red Blood Count 4.52 x10^6/uL (3.50-5.40) Hemoglobin 13.0 g/dL (12.0-15.5) Hematocrit 40.7 % (36.0-47.0) Mean Corpuscular Volume 90 fL (79-100) Mean Corpuscular Hemoglobin 29 pg (25-35) Mean Corpuscular Hemoglobin Concent 32 g/dL (31-37) Red Cell Distribution Width 13.4 % (11.5-14.5) Platelet Count 222 x10^3/uL (140-400) Neutrophils (%) (Auto) 60 % (31-73) Lymphocytes (%) (Auto) 29 % (24-48) Monocytes (%) (Auto) 7 % (0-9) Eosinophils (%) (Auto) 3 % (0-3) Basophils (%) (Auto) 1 % (0-3) Neutrophils # (Auto) 4.5 x10^3/uL (1.8-7.7) Lymphocytes # (Auto) 2.2 x10^3/uL (1.0-4.8) Monocytes # (Auto) 0.5 x10^3/uL (0.0-1.1) Eosinophils # (Auto) 0.3 x10^3/uL (0.0-0.7) Basophils # (Auto) 0.1 x10^3/uL (0.0-0.2) Sodium Level 142 mmol/L (136-145) Potassium Level 3.3 mmol/L (3.5-5.1) Chloride Level 106 mmol/L (98-107) Carbon Dioxide Level 27 mmol/L (21-32) Anion Gap 9 (6-14) Blood Urea Nitrogen 25 mg/dL (7-20) Creatinine 1.5 mg/dL (0.6-1.0) Estimated GFR (Cockcroft-Gault) 34.5 BUN/Creatinine Ratio 17 (6-20) Glucose Level 204 mg/dL (70-99) Calcium Level 8.5 mg/dL (8.5-10.1) Total Bilirubin 0.3 mg/dL (0.2-1.0) Aspartate Amino Transf (AST/SGOT) 12 U/L (15-37) Alanine Aminotransferase (ALT/SGPT) 17 U/L (14-59) Alkaline Phosphatase 75 U/L (46-116) Total Protein 6.5 g/dL (6.4-8.2) Albumin 3.0 g/dL (3.4-5.0) Albumin/Globulin Ratio 0.9 (1.0-1.7) Glucose (Fingerstick) 184 mg/dL (70-99) 135 mg/dL (70-99) Brief Hospital Course Ms. 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 in [place], [place] Physiatry consulted, shoulder injury, follow there as well, consider ortho plan Discharge Information Condition at Discharge: Improved Follow Up: Weeks Disposition/Orders: D/C to Home Scheduled Amiodarone Hcl (Amiodarone Hcl) 200 Mg Tablet, 1 TAB PO DAILY for afib, #90 Ref 1 (Reported) Entered as Reported by: CALVIN TOLBERT on 07/26/211311 Last Action: New Order on 07/26/211311 by CALVIN TOLBERT Apixaban (Eliquis) 5 Mg Tablet, 5 MG PO BID for cva, (Reported) Entered as Reported by: REBEKA ROBERTS on 07/25/212020 Last Action: Continued on 07/26/2117 by MOY FERGUSON MD Captopril (Captopril) 25 Mg Tablet, 25 MG PO BID for HTN, (Reported) Entered as Reported by: CALVIN TOLBERT on 07/26/211311 Last Action: New Order on 07/26/211311 by CALVIN TOLBERT Duloxetine Hcl (Duloxetine Hcl) 30 Mg Capsule.dr, 30 MG PO DAILY for anxiety, (Reported) Entered as Reported by: CALVIN TOLBERT on 07/26/211311 Last Action: New Order on 07/26/211311 by CALVIN TOLBERT Furosemide (Furosemide) 20 Mg Tablet, 20 MG PO DAILY for afib, (Reported) Entered as Reported by: CALVIN TOLBERT on 07/26/211311 Last Action: New Order on 07/26/211311 by CALVIN TOLBERT Insulin Glargine,Hum.rec.anlog (Lantus Solostar) 100 Unit/1 Ml Insuln.pen, 65 UNIT SQ QHS for DM, #15 Ref 3 (Reported) Entered as Reported by: CALVIN TOLBERT on 07/26/211311 Last Action: New Order on 07/26/211311 by CALVIN TOLBERT Montelukast Sodium (Montelukast Sodium Tablet ) 10 Mg Tablet, 30 MG PO HS for FOR ASTHMA, Ref 0 (Reported) Entered as Reported by: CALVIN TOLBERT on 07/26/211311 Last Action: New Order on 07/26/211311 by CALVIN TOLBERT Potassium Chloride (Klor-Con M20) 20 Meq Tab.er.prt, 20 MEQ PO DAILY for taking lasix, (Reported) Entered as Reported by: CALVIN TOLBERT on 07/26/211311 Last Action: New Order on 07/26/211311 by CALVIN TOLBERT Tolterodine Tartrate (Detrol La) 4 Mg Cap.er.24h, 1 CAP PO DAILY for incontinence, #90 Ref 1 (Reported) Entered as Reported by: CALVIN TOLBERT on 07/26/211311 Last Action: New Order on 07/26/211311 by CALVIN TOLBERT Discontinued Medications Apixaban (Eliquis) 5 Mg Tablet, 5 MG PO DAILY for afib, (Reported) Entered as Reported by: CALVIN TOLBERT on 07/26/211311 Last Action: New Order on 07/26/211311 by CALVIN TOLBERT Patient Instructions Patient Instructions pt seen face to face Justicifation of Admission Dx: Justifications for Admission: Justification of Admission Dx: No (obs) AVEL SAM MD Jul 26, 2021 16:32
[2021-07-26 19:22] VITALS: BP 170/57
[2021-07-26] MEDS: INSULIN GLARGINE SYRINGE. SQ SCH (20:50)
[2021-07-26] MEDS ORDERED: ATORVASTATIN CALCIUM 20 MG TABLET PO SCH (21:00)
[2021-07-26 22:52] VITALS: BP 164/64
[2021-07-27 03:00] VITALS: BP 183/78
[2021-07-27 04:59] LABS: HEMOGLOBIN A1C 7.7 % (4.8-5.6)
[2021-07-27 07:00] VITALS: BP 162/62
[2021-07-27] MEDS: INSULIN LISPRO 300 UNITS/3 ML VIAL. SQ SCH ×2 (08:16→08:17)
[2021-07-27] MEDS: APIXABAN 5 MG TABLET. PO SCH (08:26)
[2021-07-27] MEDS: FUROSEMIDE 20 MG TABLET PO SCH (08:26)
[2021-07-27] MEDS: AMIODARONE HCL 200 MG TABLET. PO SCH (08:26)
[2021-07-27 08:27] VITALS: BP 162/62
--- NOTE | 2021-07-27 09:18 | PDOC ---
PROGRESS NOTES Date of Service DATE: 07/27/21 TIME: 09:15 Subjective Subjective She admits continued left shoulder pain to some extent and eager to go home. Objective Objective Vital Signs Date Time Temp Pulse Resp B/P (MAP) Pulse Ox O2 Delivery O2 Flow Rate FiO2 07/27/21 08:27 70 162/62 07/27/21 08:00 Room Air 07/27/21 07:00 97.7 18 95 97.7 Intake and Output 07/27/21 07:00 Intake Total 940 ml Balance 940 ml Intake Oral 940 ml # Voids 3 Physical Exam Physical Exam She is alert,sitting in bed side chair and seems to be comfortable and she continues with tenderness to palpation over left shoulder and left posterior shoulder girdle muscles. Assessment Assessment Problems Medical Problems: (1) Acute renal failure Status: Acute (2) Elevated troponin Status: Acute (3) Hyperglycemia Status: Acute (4) Left upper limb pain Status: Acute Plan Plan of Group Home with home health physical therapy follow up when medically stable. Comment Review of Relevant I have reviewed the following items karen (where applicable) has been applied. Labs Laboratory Tests Test 07/25/21 14:00 07/25/21 14:22 07/25/21 17:00 07/25/21 18:19 White Blood Count 9.3 x10^3/uL (4.0-11.0) Red Blood Count 4.84 x10^6/uL (3.50-5.40) Hemoglobin 14.2 g/dL (12.0-15.5) Hematocrit 43.8 % (36.0-47.0) Mean Corpuscular Volume 91 fL (79-100) Mean Corpuscular Hemoglobin 29 pg (25-35) Mean Corpuscular Hemoglobin Concent 32 g/dL (31-37) Red Cell Distribution Width 13.7 % (11.5-14.5) Platelet Count 226 x10^3/uL (140-400) Neutrophils (%) (Auto) 66 % (31-73) Lymphocytes (%) (Auto) 26 % (24-48) Monocytes (%) (Auto) 5 % (0-9) Eosinophils (%) (Auto) 3 % (0-3) Basophils (%) (Auto) 1 % (0-3) Neutrophils # (Auto) 6.1 x10^3/uL (1.8-7.7) Lymphocytes # (Auto) 2.4 x10^3/uL (1.0-4.8) Monocytes # (Auto) 0.5 x10^3/uL (0.0-1.1) Eosinophils # (Auto) 0.3 x10^3/uL (0.0-0.7) Basophils # (Auto) 0.1 x10^3/uL (0.0-0.2) Sodium Level 136 mmol/L (136-145) Potassium Level 3.9 mmol/L (3.5-5.1) Chloride Level 101 mmol/L (98-107) Carbon Dioxide Level 27 mmol/L (21-32) Anion Gap 8 (6-14) Blood Urea Nitrogen 26 mg/dL (7-20) Creatinine 1.8 mg/dL (0.6-1.0) Estimated GFR (Cockcroft-Gault) 28.0 BUN/Creatinine Ratio 14 (6-20) Glucose Level 453 mg/dL (70-99) Hemoglobin A1c 7.7 % (4.8-5.6) Calcium Level 9.1 mg/dL (8.5-10.1) Magnesium Level 2.3 mg/dL (1.8-2.4) Total Bilirubin 0.3 mg/dL (0.2-1.0) Aspartate Amino Transf (AST/SGOT) 10 U/L (15-37) Alanine Aminotransferase (ALT/SGPT) 16 U/L (14-59) Alkaline Phosphatase 98 U/L (46-116) Troponin I High Sensitivity 52 ng/L (4-50) 49 ng/L (4-50) FD-Lfp-V-Type Natriuretic Peptide 231 pg/mL (0-124) Total Protein 7.9 g/dL (6.4-8.2) Albumin 3.7 g/dL (3.4-5.0) Albumin/Globulin Ratio 0.9 (1.0-1.7) Triglycerides Level 261 mg/dL (0-150) Cholesterol Level 238 mg/dL (0-200) LDL Cholesterol, Calculated 128 mg/dL (0-100) VLDL Cholesterol, Calculated 52 mg/dL (0-40) Non-HDL Cholesterol Calculated 180 mg/dL (0-129) HDL Cholesterol 58 mg/dL (40-60) Cholesterol/HDL Ratio 4.1 Thyroid Stimulating Hormone (TSH) 1.858 uIU/mL (0.358-3.74) Urine Collection Type Unknown Urine Color (Auto) Light yellow Urine Turbidity Hazy Urine pH (Auto) 6.5 (<5.0-8.0) Urine Specific [place] 1.023 (1.000-1.030) Urine Protein (Auto) 50 mg/dL (Negative) Urine Glucose (Auto)(UA) >=1000 mg/dL (Negative) Urine Ketones (Auto) Negative mg/dL (Negative) Urine Blood (Auto) Negative (Negative) Urine Nitrite Negative (Negative) Urine Bilirubin (Auto) Negative (Negative) Urine Urobilinogen (Auto) Normal mg/dL (Normal) Urine Leukocyte Esterase (Auto) Negative (Negative) Urine RBC 0 /HPF (0-2) Urine WBC 5-10 /HPF (0-4) Urine Squamous Epithelial Cells Occ /LPF Urine Bacteria Moderate /HPF (0-FEW) Coronavirus (COVID-19)(PCR) Not detected (NOT DETECTD) SARS-CoV-2 Antigen (Rapid) Negative (NEGATIVE) Test 07/25/21 19:22 07/25/21 19:30 07/25/21 20:20 07/26/21 03:25 Glucose (Fingerstick) 223 mg/dL (70-99) Prothrombin Time 12.5 SEC (11.7-14.0) Prothromb Time International Ratio 1.0 (0.8-1.1) Activated Partial Thromboplast Time 25 SEC (24-38) Troponin I High Sensitivity 50 ng/L (4-50) White Blood Count 7.6 x10^3/uL (4.0-11.0) Red Blood Count 4.52 x10^6/uL (3.50-5.40) Hemoglobin 13.0 g/dL (12.0-15.5) Hematocrit 40.7 % (36.0-47.0) Mean Corpuscular Volume 90 fL (79-100) Mean Corpuscular Hemoglobin 29 pg (25-35) Mean Corpuscular Hemoglobin Concent 32 g/dL (31-37) Red Cell Distribution Width 13.4 % (11.5-14.5) Platelet Count 222 x10^3/uL (140-400) Neutrophils (%) (Auto) 60 % (31-73) Lymphocytes (%) (Auto) 29 % (24-48) Monocytes (%) (Auto) 7 % (0-9) Eosinophils (%) (Auto) 3 % (0-3) Basophils (%) (Auto) 1 % (0-3) Neutrophils # (Auto) 4.5 x10^3/uL (1.8-7.7) Lymphocytes # (Auto) 2.2 x10^3/uL (1.0-4.8) Monocytes # (Auto) 0.5 x10^3/uL (0.0-1.1) Eosinophils # (Auto) 0.3 x10^3/uL (0.0-0.7) Basophils # (Auto) 0.1 x10^3/uL (0.0-0.2) Sodium Level 142 mmol/L (136-145) Potassium Level 3.3 mmol/L (3.5-5.1) Chloride Level 106 mmol/L (98-107) Carbon Dioxide Level 27 mmol/L (21-32) Anion Gap 9 (6-14) Blood Urea Nitrogen 25 mg/dL (7-20) Creatinine 1.5 mg/dL (0.6-1.0) Estimated GFR (Cockcroft-Gault) 34.5 BUN/Creatinine Ratio 17 (6-20) Glucose Level 204 mg/dL (70-99) Calcium Level 8.5 mg/dL (8.5-10.1) Total Bilirubin 0.3 mg/dL (0.2-1.0) Aspartate Amino Transf (AST/SGOT) 12 U/L (15-37) Alanine Aminotransferase (ALT/SGPT) 17 U/L (14-59) Alkaline Phosphatase 75 U/L (46-116) Total Protein 6.5 g/dL (6.4-8.2) Albumin 3.0 g/dL (3.4-5.0) Albumin/Globulin Ratio 0.9 (1.0-1.7) Test 07/26/21 07:51 07/26/21 11:27 07/26/21 16:40 07/27/21 07:48 Glucose (Fingerstick) 184 mg/dL (70-99) 135 mg/dL (70-99) 162 mg/dL (70-99) 279 mg/dL (70-99) Laboratory Tests Test 07/26/21 11:27 07/26/21 16:40 07/27/21 07:48 Glucose (Fingerstick) 135 mg/dL (70-99) 162 mg/dL (70-99) 279 mg/dL (70-99) Microbiology 07/25/21 Urine Culture - Final, Complete Medications Current Medications Ondansetron HCl (Zofran) 4 mg PRN Q8HRS PRN IVP NAUSEA/VOMITING; Start 07/25/21 at 18:00; Stop 07/26/21 at 17:59; Status DC Morphine Sulfate (Morphine Sulfate) 4 mg PRN Q2HR PRN IVP PAIN; Start 07/25/21 at 18:00; Stop 07/26/21 at 17:59; Status DC Acetaminophen (Tylenol) 650 mg PRN Q4HRS PRN PO FEVER > 100.3'F; Start 07/25/21 at 18:00; Stop 07/26/21 at 17:59; Status DC Nitroglycerin (Nitrostat) 0.4 mg PRN Q5MIN PRN SL CHEST PAIN; Start 07/25/21 at 18:00; Stop 07/26/21 at 17:59; Status DC Aspirin (Loren Aspirin) 325 mg 1X ONCE PO Last administered on 07/25/21at 20:43; Start 07/25/21 at 18:00; Stop 07/25/21 at 18:06; Status DC Labetalol HCl (Normodyne Iv Push) 10 mg 1X ONCE IVP ; Start 07/25/21 at 18:00; Stop 07/25/21 at 18:06; Status DC Sodium Chloride 1,000 ml @ 75 mls/hr 1X ONCE IV Last administered on 07/25/21at 20:42; Start 07/25/21 at 18:00; Stop 07/26/21 at 07:19; Status DC Insulin Human Lispro (HumaLOG) 0-5 UNITS TIDWMEALS SQ ; Start 07/26/21 at 08:00; Stop 07/26/21 at 00:24; Status DC Dextrose (Dextrose 50%-Water Syringe) 12.5 gm PRN Q15MIN PRN IV SEE COMMENTS; Start 07/25/21 at 18:00; Status UNV Dextrose (Iv Dextrose 5%) 250 ml PRN Q15MIN PRN IV SEE COMMENTS; Start 07/25/21 at 18:00; Stop 07/26/21 at 00:25; Status DC Amlodipine Besylate (Norvasc) 5 mg DAILY PO Last administered on 07/27/21at 08:27; Start 07/26/21 at 09:00 Insulin Human Lispro (HumaLOG) 15 units ONCE ONCE SQ Last administered on 07/25/21at 20:43; Start 07/25/21 at 19:00; Stop 07/25/21 at 19:01; Status DC Hydralazine HCl (Apresoline Inj) 10 mg PRN Q4HRS PRN IVP ELEVATED BP, SEE COMMENTS; Start 07/25/21 at 19:00 Insulin Glargine (Lantus Syringe) 20 unit QHS SQ Last administered on 07/26/21at 20:50; Start 07/25/21 at 21:00 Insulin Human Lispro (HumaLOG) 10 units TIDAC SQ Last administered on 07/27/21at 08:16; Start 07/26/21 at 07:30 Heparin Sodium (Porcine) (Heparin Sodium) 5,000 unit Q8HRS SQ ; Start 07/26/21 at 06:00; Stop 07/26/21 at 00:19; Status DC Apixaban (Eliquis) 5 mg BID PO Last administered on 07/27/21at 08:26; Start 07/26/21 at 09:00 Insulin Human Lispro (HumaLOG) 0-7 UNITS TIDWMEALS SQ Last administered on 07/27/21at 08:17; Start 07/26/21 at 08:00 Dextrose (Dextrose 50%-Water Syringe) 12.5 gm PRN Q15MIN PRN IV SEE COMMENTS; Start 07/26/21 at 00:30 Dextrose (Iv Dextrose 5%) 250 ml PRN Q15MIN PRN IV SEE COMMENTS; Start 07/26/21 at 00:30 Prednisone (Prednisone) 10 mg DAILY PO Last administered on 07/27/21at 08:27; Start 07/27/21 at 10:00 Potassium Chloride (Klor-Con) 40 meq 1X ONCE PO Last administered on 07/26/21at 13:41; Start 07/26/21 at 13:30; Stop 07/26/21 at 13:31; Status DC Atorvastatin Calcium (Lipitor) 20 mg QHS PO Last administered on 07/26/21at 20: 48; Start 07/26/21 at 21:00 Furosemide (Lasix) 20 mg DAILY PO Last administered on 07/27/21at 08:26; Start 07/26/21 at 14:00 Amiodarone HCl (Cordarone) 200 mg DAILY PO Last administered on 07/27/21at 08:26; Start 07/26/21 at 14:00 Active Scripts Active Reported Lantus Solostar (Insulin Glargine,Hum.rec.anlog) 100 Unit/1 Ml Insuln.pen 65 Unit SQ QHS Detrol La (Tolterodine Tartrate) 4 Mg Cap.er.24h 1 Cap PO DAILY Amiodarone Hcl 200 Mg Tablet 1 Tab PO DAILY Montelukast Sodium Tablet (Montelukast Sodium) 10 Mg Tablet 30 Mg PO HS Duloxetine Hcl 30 Mg Capsule.dr 30 Mg PO DAILY Captopril 25 Mg Tablet 25 Mg PO BID Furosemide 20 Mg Tablet 20 Mg PO DAILY Klor-Con M20 (Potassium Chloride) 20 Meq Tab.er.prt 20 Meq PO DAILY Eliquis (Apixaban) 5 Mg Tablet 5 Mg PO BID Vitals/I & O Vital Sign - Last 24 Hours 07/26/21 07/26/21 07/26/21 07/26/21 10:59 13:40 15:00 19:22 Temp 97.5 97.6 97.5 97.5 97.6 97.5 Pulse 70 70 76 71 Resp 18 18 18 B/P (MAP) 142/60 (87) 142/60 146/70 (95) 170/57 (94) Pulse Ox 99 97 96 O2 Delivery Room Air Room Air Room Air 07/26/21 07/26/21 07/27/21 07/27/21 20:50 22:52 03:00 07:00 Temp 98.0 98.0 97.7 98.0 98.0 97.7 Pulse 70 77 70 Resp 18 18 18 B/P (MAP) 164/64 (97) 183/78 (113) 162/62 (95) Pulse Ox 95 95 95 O2 Delivery Room Air Room Air Room Air Room Air 07/27/21 07/27/21 07/27/21 08:00 08:26 08:27 Pulse 70 70 B/P (MAP) 162/62 162/62 O2 Delivery Room Air Intake and Output 07/26/21 07/26/21 07/27/21 15:00 23:00 07:00 Intake Total 360 ml 580 ml Balance 360 ml 580 ml Justifications for Admission Other Justification PREM BRISENO MD Jul 27, 2021 09:18
[2021-07-27] MEDS ORDERED: predniSONE 10 MG TABLET PO SCH (10:00)
--- NOTE | 2021-07-27 15:04 | PDOC ---
[employer] PROGRESS NOTE Date of Service DOS: DATE: 07/27/21 TIME: 15:03 Chief Complaint Chief Complaint LATE ENTRY, DC ordered placed 07/26 Sub acute sprain and tendinitis,left shoulder degenerative joint disease of left shoulder and both knees and left posterior shoulder girdle muscle strain. Diabetic peripheral neuropathy. CKD 3 obese, BMI 32 Dm2 hyperlipids, untreated History of Present Illness History of Present Illness DC today , seen 07/26, dc plan Vitals/I&O Vitals/I&O: Vital Signs Date Time Temp Pulse Resp B/P (MAP) Pulse Ox O2 Delivery O2 Flow Rate FiO2 07/27/21 08:27 70 162/62 07/27/21 08:00 Room Air 07/27/21 07:00 97.7 18 95 97.7 I & O 07/26/21 07/26/21 07/27/21 15:00 23:00 07:00 Intake Total 360 ml 580 ml Balance 360 ml 580 ml Physical Exam General: Alert, Oriented X3, Cooperative, No acute distress Heart: Regular rate (SR), Normal S1, Normal S2, Other (2/6 systolic murmur to LLS border) Abdomen: Soft, No tenderness Extremities: No cyanosis, No edema Skin: No breakdown, No significant lesion Labs Labs: Laboratory Tests Test 07/26/21 16:40 07/27/21 07:48 Glucose (Fingerstick) 162 mg/dL (70-99) 279 mg/dL (70-99) Assessment and Plan Assessmemt and Plan Problems Medical Problems: (1) Acute renal failure Status: Acute (2) Elevated troponin Status: Acute (3) Hyperglycemia Status: Acute (4) Left upper limb pain Status: Acute Comment Review of Relevant I have reviewed the following items karen (where applicable) has been applied. Medications: Current Medications Medications (Trade) Dose Ordered Sig/[place] Route PRN Reason Start Time Stop Time Status Last Admin Dose Admin Prednisone (Prednisone) 10 mg DAILY PO 07/27/21 10:00 07/27/21 11:33 DC 07/27/21 08:27 Atorvastatin Calcium (Lipitor) 20 mg QHS PO 07/26/21 21:00 07/27/21 11:33 DC 07/26/21 20:48 Justifications for Admission Other Justification AVEL SAM MD Jul 27, 2021 15:04
== END 2021-07-27 10:11 | disposition home or self-care (01) | DRG 73 ==
LOC: ER 12:52 → ED HOLD 15:58 → 6 SOUTH 18:37
PROVIDERS: ADMIT Student in an Organized Health Care Education/Training Program; ATTEND Student in an Organized Health Care Education/Training Program
DX: E11.42 Type 2 diabetes mellitus with diabetic polyneuropathy (principal); N17.0 Acute kidney failure with tubular necrosis; I69.354 Hemiplegia and hemiparesis following cerebral infarction affecting left non-dominant side; M19.012 Primary osteoarthritis, left shoulder; E11.65 Type 2 diabetes mellitus with hyperglycemia; I12.9 Hypertensive chronic kidney disease with stage 1 through stage 4 chronic kidney disease, or unspecified chronic kidney disease; E11.22 Type 2 diabetes mellitus with diabetic chronic kidney disease; E66.9 Obesity, unspecified; E78.5 Hyperlipidemia, unspecified; M77.9 Enthesopathy, unspecified; N18.30 Chronic kidney disease, stage 3 unspecified; Z68.32 Body mass index [BMI] 32.0-32.9, adult; Z79.01 Long term (current) use of anticoagulants; Z82.49 Family history of ischemic heart disease and other diseases of the circulatory system; Z90.710 Acquired absence of both cervix and uterus; Z20.822 Contact with and (suspected) exposure to COVID-19
CPT/HCPCS: 36415; 71045; 73030; 80053; 80061; 81001; 82962; 83036; 83735; 83880; 84443; 84484; 85025; 85610; 85730; 87086; 87426; 93005; J1815; J7030; J7512; U0003; 99285-25; G0378